=== PATIENT | female | born 1960 | race Caucasian/White ===

== ENCOUNTER 2018-02-10 18:49 | Emergency (ER) | payer SELFPAY ==
[~2018-02-10] VITALS: Ht 165.1 cm; Wt 75.3 kg
[~2018-02-10 18:49] MED LIST: ATEN25 PO; BUPR150T2 PO; DIAZ5 PO; DIVA125EC PO; GABA300 PO; HYDACE5 PO; OXYACE5T PO; ZOLP5 PO
[2018-02-10 19:38] LABS: BASOPHILS ABSOLUTE AUTO 0.02 K/mm3 (0.00-0.23); BASOPHILS PERCENT AUTO 0 % (0-2); EOSINOPHILS ABSOLUTE AUTO 0.04 K/mm3 (0.00-0.68); EOSINOPHILS PERCENT AUTO 0 % (0-6); Hemoglobin 13.4 g/dL (11.5-16.0); IMMATURE GRAN ABSOLUTE AUTO 0.03 K/mm3 (0.00-0.10); IMMATURE GRAN PERCENT AUTO 0 % (0-1); LYMPHOCYTES ABSOLUTE AUTO 1.18 K/mm3 (0.84-5.20); LYMPHOCYTES PERCENT AUTO 13 % (21-46); MONOCYTES ABSOLUTE AUTO 0.52 K/mm3 (0.16-1.47); MONOCYTES PERCENT AUTO 6 % (4-13); Mean Corpuscular HGB Conc 33.5 g/dL (31.5-36.5); Mean Corpuscular Volume 90 fL (80-100); Mean Platelet Volume 10.2 fL (9.1-12.4); NEUTROPHILS ABSOLUTE AUTO 7.29 K/mm3 (1.96-9.15); NEUTROPHILS PERCENT AUTO 80 % (41-73); Platelet Count 172 K/mm3 (150-400); RDW Coefficient Variation 12.9 % (11.7-14.2); RDW Standard Deviation 42.4 fL (35.1-46.3); Red Blood Cell Count 4.47 M/mm3 (3.80-5.20); White Blood Cell Count 9.08 K/mm3 (4.00-11.30)
[2018-02-10] MEDS ORDERED: ALLERGY RELIE15.8 ML (19:38)
[2018-02-10] MEDS ORDERED: L-THEANINE25 GM PO (19:39)
[2018-02-10] MEDS ORDERED: VENL37.5ER PO (19:39)
[2018-02-10] MEDS ORDERED: TRAZ50 PO (19:39)
[2018-02-10] MEDS ORDERED: ESTROGENS CONJUGATED (19:43)
[2018-02-10 19:53] LABS: Alanine Aminotransfer (ALT/SGP 102 U/L (12-78); Albumin, Blood 3.7 g/dL (3.4-5.0); Albumin/Globulin Ratio 1.2 (0.8-1.8); Alk Phos 65 U/L (50-136); Anion Gap 9 mmol/L (6-16); Aspartate Aminotrans (AST/SGOT 157 U/L (12-37); Bilirubin, Total 0.6 mg/dL (0.1-1.0); Blood Urea Nitrogen 15 mg/dL (8-24); Bun/Creatinine Ratio 20.4 (12.0-20.0); CO2, Blood 25 mmol/L (21-32); Calcium, Blood 9.2 mg/dL (8.5-10.1); Chloride, Blood 107 mmol/L (98-108); Creatinine, Blood 0.73 mg/dL (0.40-1.00); Globulin, Blood 3.1 g/dL (2.2-4.0); Glomerular Filtration Rate >60 (60-); Glucose, Blood 78 mg/dL (70-99); Potassium, Blood 3.8 mmol/L (3.5-5.5); Sodium, Blood 141 mmol/L (136-145); Total Protein, Blood 6.8 g/dL (6.4-8.2); Troponin I <0.015 ng/mL (0.000-0.040)
[2018-02-10] MEDS ORDERED: Norco 5-325 Ta1 EACH PO (21:16)
[2018-02-10] MEDS ORDERED: IBUP600 PO (21:16)
== END 2018-02-10 21:30 | disposition home or self-care (01) ==
LOC: ER 18:49
PROVIDERS: Emergency Medicine
DX: R55 Syncope and collapse (principal); S09.90XA Unspecified injury of head, initial encounter; G89.29 Other chronic pain; M54.6 Pain in thoracic spine; R07.81 Pleurodynia; F32.9 Major depressive disorder, single episode, unspecified; F41.9 Anxiety disorder, unspecified; Z79.899 Other long term (current) drug therapy; W22.8XXA Striking against or struck by other objects, initial encounter
CPT/HCPCS: 70450; 71111; 72070; 80053; 84484; 85025; 93005; 93010; 96374; 96375; 99284; J1885; J2060; J3010

== ENCOUNTER 2019-08-31 10:32 | Emergency (ER) | payer OTHER ==
[~2019-08-31] VITALS: Ht 167.6 cm; Wt 90.7 kg
[~2019-08-31 10:32] MED LIST changes: +ALLERGY RELIE15.8 ML; +CEPH500 PO; +ESTROGENS CONJUGATED; +IBUP600 PO; +KETO10 PO; +L-THEANINE25 GM PO; +Norco 5-325 Ta1 EACH PO; +Pyridium100 MG PO; +TRAZ50 PO; +VENL37.5ER PO
[2019-08-31 11:09] LABS: BASOPHILS ABSOLUTE AUTO 0.04 K/mm3 (0.00-0.23); BASOPHILS PERCENT AUTO 1 % (0-2); EOSINOPHILS ABSOLUTE AUTO 0.08 K/mm3 (0.00-0.68); EOSINOPHILS PERCENT AUTO 1 % (0-6); Hematocrit 46.3 % (33.0-51.0); Hemoglobin 15.2 g/dL (11.5-16.0); IMMATURE GRAN ABSOLUTE AUTO 0.02 K/mm3 (0.00-0.10); IMMATURE GRAN PERCENT AUTO 0 % (0-1); LYMPHOCYTES ABSOLUTE AUTO 1.54 K/mm3 (0.84-5.20); LYMPHOCYTES PERCENT AUTO 25 % (21-46); MONOCYTES ABSOLUTE AUTO 0.41 K/mm3 (0.16-1.47); MONOCYTES PERCENT AUTO 7 % (4-13); Mean Corpuscular HGB 30.4 pg (26.0-34.0); Mean Corpuscular HGB Conc 32.8 g/dL (31.5-36.5); Mean Corpuscular Volume 93 fL (80-100); Mean Platelet Volume 9.7 fL (9.1-12.4); NEUTROPHILS PERCENT AUTO 66 % (41-73); Platelet Count 231 K/mm3 (150-400); RDW Coefficient Variation 13.5 % (11.7-14.2); RDW Standard Deviation 46.2 fL (35.1-46.3); White Blood Cell Count 6.09 K/mm3 (4.00-11.30)
[2019-08-31 11:15] LABS: Calcium, Ionized (POC) 0.78 mmol/L (1.10-1.46); Chloride (POC) 119 mmol/L (98-108); Creatinine (POC) 0.2 mg/dL (0.6-1.0); Glucose (ISTAT POC) 62 mg/dL (70-99); Hemoglobin (POC) 9.5 g/dL (12.0-16.0); Potassium (POC) 2.3 mmol/L (3.5-5.5); Sodium (POC) 146 mmol/L (135-148); Total CO2 (POC) 13 mmol/L (21-32)
[2019-08-31] MEDS ORDERED: ATEN25 PO (11:16)
[2019-08-31] MEDS ORDERED: LIDO700A20 TOP (11:16)
[2019-08-31] MEDS ORDERED: VENL37.5ER PO (11:17)
[2019-08-31] MEDS ORDERED: TRAZ50 PO (11:17)
[2019-08-31 11:31] LABS: Alanine Aminotransfer (ALT/SGP 28 U/L (12-78); Albumin, Blood 3.8 g/dL (3.4-5.0); Albumin/Globulin Ratio 1.1 (0.8-1.8); Alk Phos 79 U/L (50-136); Anion Gap 10 mmol/L (6-16); Aspartate Aminotrans (AST/SGOT 35 U/L (12-37); Bilirubin, Total 0.5 mg/dL (0.1-1.0); Blood Urea Nitrogen 15 mg/dL (8-24); Bun/Creatinine Ratio 28.8 (12.0-20.0); CO2, Blood 19 mmol/L (21-32); Calcium, Blood 8.8 mg/dL (8.5-10.1); Chloride, Blood 112 mmol/L (98-108); Creatinine, Blood 0.52 mg/dL (0.40-1.00); Globulin, Blood 3.6 g/dL (2.2-4.0); Glomerular Filtration Rate >60 (60-); Glucose, Blood 90 mg/dL (70-99); Potassium, Blood 3.8 mmol/L (3.5-5.5); Sodium, Blood 141 mmol/L (136-145); Total Protein, Blood 7.4 g/dL (6.4-8.2)
[2019-08-31] MEDS ORDERED: Tenormin25 MG PO (11:52)
== END 2019-08-31 12:15 | disposition home or self-care (01) ==
LOC: ER 10:32
PROVIDERS: Emergency Medicine
DX: I48.0 Paroxysmal atrial fibrillation (principal); F32.9 Major depressive disorder, single episode, unspecified; F41.9 Anxiety disorder, unspecified; Z88.2 Allergy status to sulfonamides; Z88.5 Allergy status to narcotic agent; Z87.891 Personal history of nicotine dependence; Z79.899 Other long term (current) drug therapy; Z91.14 Patient's other noncompliance with medication regimen
CPT/HCPCS: 36415; 71045; 80047; 80053; 85014; 85025; 93005; 93010; 96360; 99284-25; J7030

== ENCOUNTER 2019-12-25 10:17 | Emergency (ER) | payer OTHER ==
[~2019-12-25] VITALS: Ht 167.6 cm; Wt 91.2 kg
[~2019-12-25 10:17] MED LIST changes: +LIDO700A20 TOP; +Tenormin25 MG PO
[2019-12-25 11:02] LABS: BASOPHILS ABSOLUTE AUTO 0.03 K/mm3 (0.00-0.23); BASOPHILS PERCENT AUTO 1 % (0-2); EOSINOPHILS ABSOLUTE AUTO 0.17 K/mm3 (0.00-0.68); EOSINOPHILS PERCENT AUTO 3 % (0-6); Hematocrit 41.5 % (33.0-51.0); Hemoglobin 13.7 g/dL (11.5-16.0); IMMATURE GRAN ABSOLUTE AUTO 0.01 K/mm3 (0.00-0.10); IMMATURE GRAN PERCENT AUTO 0 % (0-1); LYMPHOCYTES ABSOLUTE AUTO 1.55 K/mm3 (0.84-5.20); LYMPHOCYTES PERCENT AUTO 29 % (21-46); MONOCYTES PERCENT AUTO 8 % (4-13); Mean Corpuscular HGB 31.4 pg (26.0-34.0); Mean Corpuscular Volume 95 fL (80-100); Mean Platelet Volume 9.5 fL (9.1-12.4); NEUTROPHILS ABSOLUTE AUTO 3.15 K/mm3 (1.96-9.15); NEUTROPHILS PERCENT AUTO 59 % (41-73); Platelet Count 197 K/mm3 (150-400); RDW Coefficient Variation 13.5 % (11.7-14.2); Red Blood Cell Count 4.36 M/mm3 (3.80-5.20); White Blood Cell Count 5.31 K/mm3 (4.00-11.30)
[2019-12-25 11:38] LABS: Alanine Aminotransfer (ALT/SGP 21 U/L (12-78); Albumin, Blood 3.3 g/dL (3.4-5.0); Albumin/Globulin Ratio 1.1 (0.8-1.8); Alk Phos 68 U/L (50-136); Anion Gap 6 mmol/L (6-16); Aspartate Aminotrans (AST/SGOT 25 U/L (12-37); Bilirubin, Total 0.2 mg/dL (0.1-1.0); Blood Urea Nitrogen 9 mg/dL (8-24); Bun/Creatinine Ratio 15.1 (12.0-20.0); CO2, Blood 24 mmol/L (21-32); Calcium, Blood 7.7 mg/dL (8.5-10.1); Chloride, Blood 113 mmol/L (98-108); Globulin, Blood 3.1 g/dL (2.2-4.0); Glomerular Filtration Rate >60 (60-); Glucose, Blood 82 mg/dL (70-99); Potassium, Blood 3.5 mmol/L (3.5-5.5); Sodium, Blood 143 mmol/L (136-145); Total Protein, Blood 6.4 g/dL (6.4-8.2); Troponin I <0.015 ng/mL (0.000-0.040)
== END 2019-12-25 12:16 | disposition home or self-care (01) ==
LOC: ER 10:17
PROVIDERS: Physician Assistant
DX: I48.91 Unspecified atrial fibrillation (principal); F41.9 Anxiety disorder, unspecified; F32.9 Major depressive disorder, single episode, unspecified; M54.9 Dorsalgia, unspecified; G89.29 Other chronic pain; M79.7 Fibromyalgia; Z88.2 Allergy status to sulfonamides; Z88.5 Allergy status to narcotic agent; Z79.899 Other long term (current) drug therapy
CPT/HCPCS: 36415; 71046; 80053; 84484; 85025; 93005; 93010; 99285-25

== ENCOUNTER 2020-03-30 10:05 | Emergency (ER) | payer OTHER ==
[~2020-03-30] VITALS: Ht 165.1 cm; Wt 86.2 kg
[2020-03-30] MEDS ORDERED: AMOCLA875 PO (11:03)
[2020-03-30] MEDS ORDERED: Norco 5-325 Ta1 EACH PO (11:03)
== END 2020-03-30 12:16 | disposition home or self-care (01) ==
LOC: ER 10:05
DX: S91.352A Open bite, left foot, initial encounter (principal); S51.852A Open bite of left forearm, initial encounter; Z88.2 Allergy status to sulfonamides; Z88.5 Allergy status to narcotic agent; Z79.899 Other long term (current) drug therapy; I48.91 Unspecified atrial fibrillation; F41.9 Anxiety disorder, unspecified; F32.9 Major depressive disorder, single episode, unspecified; Z87.891 Personal history of nicotine dependence; W54.0XXA Bitten by dog, initial encounter
CPT/HCPCS: 99283; A9270-GY

== ENCOUNTER 2020-09-22 10:29 | Emergency (ER) | payer OTHER ==
[~2020-09-22] VITALS: Ht 167.6 cm; Wt 104.3 kg
[~2020-09-22 10:29] MED LIST changes: +AMOCLA875 PO
[2020-09-22 11:00] LABS: BASOPHILS ABSOLUTE AUTO 0.02 K/mm3 (0.00-0.23); BASOPHILS PERCENT AUTO 0 % (0-2); EOSINOPHILS PERCENT AUTO 4 % (0-6); Hematocrit 45.8 % (33.0-51.0); IMMATURE GRAN ABSOLUTE AUTO 0.02 K/mm3 (0.00-0.10); IMMATURE GRAN PERCENT AUTO 0 % (0-1); LYMPHOCYTES ABSOLUTE AUTO 1.12 K/mm3 (0.84-5.20); LYMPHOCYTES PERCENT AUTO 22 % (21-46); MONOCYTES ABSOLUTE AUTO 0.53 K/mm3 (0.16-1.47); MONOCYTES PERCENT AUTO 10 % (4-13); Mean Corpuscular HGB 30.8 pg (26.0-34.0); Mean Corpuscular HGB Conc 32.8 g/dL (31.5-36.5); Mean Corpuscular Volume 94 fL (80-100); Mean Platelet Volume 9.8 fL (9.1-12.4); NEUTROPHILS PERCENT AUTO 63 % (41-73); Platelet Count 208 K/mm3 (150-400); RDW Standard Deviation 45.1 fL (35.1-46.3); Red Blood Cell Count 4.87 M/mm3 (3.80-5.20); White Blood Cell Count 5.09 K/mm3 (4.00-11.30)
[2020-09-22 11:19] LABS: International Normalized Ratio 0.96; Prothrombin Time Results 10.3 Sec (9.7-11.5)
[2020-09-22 11:26] LABS: Alanine Aminotransfer (ALT/SGP 47 U/L (12-78); Albumin, Blood 3.7 g/dL (3.4-5.0); Albumin/Globulin Ratio 0.9 (0.8-1.8); Alk Phos 103 U/L (50-136); Anion Gap 8 mmol/L (6-16); Aspartate Aminotrans (AST/SGOT 50 U/L (12-37); Bilirubin, Total 0.3 mg/dL (0.1-1.0); Blood Urea Nitrogen 15 mg/dL (8-24); Bun/Creatinine Ratio 20.5 (12.0-20.0); CO2, Blood 26 mmol/L (21-32); Chloride, Blood 105 mmol/L (98-108); Creatinine, Blood 0.73 mg/dL (0.40-1.00); Globulin, Blood 4.1 g/dL (2.2-4.0); Glomerular Filtration Rate >60 (60-); Glucose, Blood 102 mg/dL (70-99); Sodium, Blood 139 mmol/L (136-145); Total Protein, Blood 7.8 g/dL (6.4-8.2)
[2020-09-22] MEDS ORDERED: ZEBUTAL 50-3251 EAC1 PO (12:02)
== END 2020-09-22 12:55 | disposition home or self-care (01) ==
LOC: ER 10:29
PROVIDERS: Emergency Medicine
DX: G43.909 Migraine, unspecified, not intractable, without status migrainosus (principal); I48.91 Unspecified atrial fibrillation; Z87.442 Personal history of urinary calculi; Z87.891 Personal history of nicotine dependence; Z79.899 Other long term (current) drug therapy
CPT/HCPCS: 36415; 70450; 80053; 84484; 85025; 85610; 85730; 93005; 93010; 96374; 99285-25; A9270; J2405

== ENCOUNTER 2020-10-01 17:24 | Inpatient (IN) | payer OTHER ==
[~2020-10-01] VITALS: Ht 165.1 cm; Wt 102.7 kg
[~2020-10-01 17:24] MED LIST changes: +ZEBUTAL 50-3251 EAC1 PO
[2020-10-01 19:13] LABS: BASOPHILS ABSOLUTE AUTO 0.04 K/mm3 (0.00-0.23); BASOPHILS PERCENT AUTO 1 % (0-2); EOSINOPHILS ABSOLUTE AUTO 0.12 K/mm3 (0.00-0.68); EOSINOPHILS PERCENT AUTO 2 % (0-6); Hematocrit 44.1 % (33.0-51.0); Hemoglobin 14.3 g/dL (11.5-16.0); IMMATURE GRAN ABSOLUTE AUTO 0.01 K/mm3 (0.00-0.10); IMMATURE GRAN PERCENT AUTO 0 % (0-1); LYMPHOCYTES ABSOLUTE AUTO 1.75 K/mm3 (0.84-5.20); LYMPHOCYTES PERCENT AUTO 28 % (21-46); MONOCYTES ABSOLUTE AUTO 0.58 K/mm3 (0.16-1.47); MONOCYTES PERCENT AUTO 9 % (4-13); Mean Corpuscular HGB Conc 32.4 g/dL (31.5-36.5); Mean Corpuscular Volume 96 fL (80-100); Mean Platelet Volume 9.6 fL (9.1-12.4); NEUTROPHILS PERCENT AUTO 60 % (41-73); Platelet Count 270 K/mm3 (150-400); RDW Coefficient Variation 12.7 % (11.7-14.2); RDW Standard Deviation 45.3 fL (35.1-46.3); Red Blood Cell Count 4.62 M/mm3 (3.80-5.20)
[2020-10-01 19:27] LABS: Alanine Aminotransfer (ALT/SGP 35 U/L (12-78); Albumin, Blood 3.4 g/dL (3.4-5.0); Albumin/Globulin Ratio 0.8 (0.8-1.8); Alk Phos 89 U/L (50-136); Anion Gap 4 mmol/L (6-16); Aspartate Aminotrans (AST/SGOT 33 U/L (12-37); Bilirubin, Total 0.2 mg/dL (0.1-1.0); Blood Urea Nitrogen 14 mg/dL (8-24); Bun/Creatinine Ratio 21.1 (12.0-20.0); CO2, Blood 27 mmol/L (21-32); Calcium, Blood 9.2 mg/dL (8.5-10.1); Chloride, Blood 107 mmol/L (98-108); Creatinine, Blood 0.66 mg/dL (0.40-1.00); Globulin, Blood 4.1 g/dL (2.2-4.0); Glomerular Filtration Rate >60 (60-); Glucose, Blood 87 mg/dL (70-99); Potassium, Blood 3.9 mmol/L (3.5-5.5); Sodium, Blood 138 mmol/L (136-145); Total Protein, Blood 7.5 g/dL (6.4-8.2)
[2020-10-01 21:48] LABS: CHOL/HDL RATIO 3.6; Cholesterol 221 mg/dL (50-200); HDL Cholesterol 61 mg/dL (>39); LDL/HDL RATIO 2.1; Low Density Lipoprotein Chol 126 mg/dL (0-110); Triglycerides 170 mg/dL (30-160); Very Low Density Lipoprot Chol 34 mg/dL (6-32)
[2020-10-01 22:29] LABS: Influenza A, PCR Negative (NEGATIVE); Influenza B, PCR Negative (NEGATIVE); Resp Syncytial Virus, PCR Negative (NEGATIVE); SARS-Cov-2 (COVID-19) PCR, MMC Negative (NEGATIVE)
[2020-10-01] MEDS ORDERED: ATEN25 PO (23:01)
[2020-10-01] MEDS ORDERED: VENL37.5ER PO (23:02)
--- NOTE | 2020-10-02 00:52 | NUR ---
PT REPORTED THAT SHE WAS ALMOST ASLEEP AND THEN SHE BEGAN HAVING A "SPLITTING" HEADACHE. MEDICATED W/ 650 MG TYLENOL AND PROVIDED COOL WASHCLOTH FOR HEAD.
--- NOTE | 2020-10-02 05:25 | NUR ---
SHIFT SUMMARY PT HAS HAD A DIFFICULT NIGHT. PT HAS AN UNSTEADY GAIT, REPORTS THAT SHE FEELS "UNBALANCED", VISUAL DISTURBANCES. IT APPLICATIONS ANALYST EQUAL AND STRONG, PUPILS EQUAL AND REACTIVE TO LIGHT. NO FACIAL DROOP. SOME DIFFICULTIES FINDING HER WORDS. PT DEVELOPED SEVERE HEADACHE THAT HAS NOT BEEN RESOLVED WITH MEDICATIONS SO FAR. TYLENOL 650 MG GIVEN, TORADOL 15 MG GIVEN, 25 MCG IV FENTANYL GIVEN, AND FINALLY FIORICET 1 TAB GIVEN. ZOFRAN GIVEN WITH FIORICET DUE TO PT REPORTING NAUSEA CAUSED BY HEADACHE. DR. BASS NOTIFIED W/ NEW ORDERS X 3. COOL WASHCLOTH APPLIED TO HEAD. PT RESTING IN BED AT THIS TIME WITH COOL WASHCLOTH ON HEAD. WAITING TO SEE EFFECTIVENESS OF FIORICET/ZOFRAN. WILL CONTINUE TO MONITOR FOR IMPROVEMENT. PT HAS BEEN HYPERTENSIVE WELL THIS EVENING WITH IMPROVEMENT AFTER PO APRESOLINE. LAST BP 153/79, IMPROVED FROM 189/115. OTHERWISE VSS. TELEMETRY REPORTING SR IN THE 70'S. WILL CONTINUE TO MONITOR AND REPORT TO DAY RN.
--- NOTE | 2020-10-02 06:03 | NUR ---
PT APPEARS TO BE SLEEPING AFTER FIORICET 1 TAB AND ZOFRAN 4 MG.
--- NOTE | 2020-10-02 06:40 | NUR ---
PT SITTING UP AT SIDE OF BED AGAIN. CONTINUES TO REPORT 8/[address] BASS[address] NO RESULTS FOR HEAD AND NECK CTA DONE LAST NIGHT. SPOKE WITH IMAGING WHO STATED THAT THE MD HAD ACCESS TO RESULTS. NOTIFIED DR. BASS. BLOOD PRESSURE ELEVATED AT 199/117. DR. BASS AWARE AND PUTTING IN ORDERS.
--- NOTE | 2020-10-02 08:10 | NUR ---
PT TO HEAD CT THIS AM DURING SHIFT CHANGE REPORT, COLOR MAKING SUPERVISOR CALLED BACK AND REPORTED PT STARTED VOMITTING IN IMAGING AND WOULD BE BRINGING PT BACK TO ROOM. NIGHT RN HAD ALREADY PREVIOUSLY GIVEN IV ZOFRAN. PT NOTED TO BE VERY ANXIOUS CRYING OUT AND STATING "HELP ME" "IM SCARED" CALLED AND SPOKE WITH DAY HOSPITALIST DR HERNANDES AND ORDERS RECEIVED FOR REGLAN X1 AND PRN IV ATIVAN, REGLAN GIVEN WELL ATIVAN. PT WAS ABLE TO GO BACK TO IMAGING AND COMPLETE THE CT. PT REMAINS VERY NAUSEATED AND 10/10 HEADACHE.
--- NOTE | 2020-10-02 17:05 | NUR ---
SHIFT SUMMARY- PT A/OX3, SLOW TO RESPOND AT TIMES. FLAT AFFECT. PT WITH FRONTAL HEADACHE T/O THE DAY. PRN DILAUDID GIVEN THIS AM AND CHANGED TO FENTANYL, PT CONT TO REPORT HEADAHCE WITH NAUSEA AND VOMITTING. VOMITTING THIS AM AND DRY HEAVING OFF AND ON T/O THE DAY. PT NOT BEEN ABLE TO TAKE ANYTHING ORALLY BUT SIPS. LR AT 125ML/HR STARTED. PT VERY ANXIOUS THIS AM, PRN ATIVAN GIVEN. PT APPEARS MUCH MORE CALM THIS AFTERNOON BUT SOON YOU ARE IN THE ROOM PT STATES DRY HEAVING AND ROCKING IN CHAIR. PT UP WITH 1 ASSIST, UNSTEADY GAIT. STEEL GRINDER EQUAL. PT DID REPORT SOME VERTIGO THIS AM BUT DENIES ANY THIS AFTERNOON. LS CLEAR, ON RA. TELE SR IN THE 70'S. PT HYPERTENSIVE TODAY, PRN HYDRALAZINE GIVEN. SPOUSE IN THIS EVENING AND UPDATED. SPOKE WITH DR HERNANDES THIS EVENING REGARDING CONTINUED NAUSEA, PRN COMPAZINE ORDERED. NO OTHER ACUTE CHANGES THIS SHIFT.
--- NOTE | 2020-10-02 18:01 | NUR ---
ECHO IN PROGRESS. ISTRATE IN TO UPDATE SPOUSE PER HIS REQUEST.
--- NOTE | 2020-10-02 22:59 | NUR ---
Assisted pt to BR. Pt has lt side neglect and is forgetful. Upset and teary, stating neck and back discomfort. "i can't take it anymore, i just want to sleep" Given ativan 1mg, pt assisted back to bed wiht bed alarm on and call light in reach.
--- NOTE | 2020-10-03 04:14 | NUR ---
SHIFT SUMMARY PT HAS RESTED OFF AND ON T/O THE NIGHT. PT CONTINUES TO HAVE ISSUES WITH HER VISION RELATED TO THE STROKE. PT ALSO IS VERY ANXIOUS AND IMPULSIVE. SHE PULLED HER TELE AND PULLED OUT HER IV THIS SHIFT. NEW POWERGLIDE WAS ESTABLISHED A RESULT. SHE IS A/O TO SELF, AND IS AWARE THAT WE HAVE A NEW PRESIDENT, BUT UNABLE TO TELL ME THE YEAR STATING THAT IT WAS 2009. SHE FOLLOWS COMMANDS BUT IS VERY SLOW TO REPSOND. PT CONTINUES TO HAVE OFF AND ON NAUSEA WITH DRY HEAVES AND SMALL AMOUNTS OF EMESIS. MEDICATED FOR NAUSEA PER ORDERS WITH EFFECT. PT HAS BEEN HYPERTENSIVE THIS SHIFT, BUT BLOOD PRESSURE IMPROVED WITH PRN HYDRALYZINE. PT HAS BEEN AMBULATING WELL WITH 1 PA. NO ACUTE CHANGES IN ASSESSMENT. IVF INFUSING ORDERED. BED IN LOWEST POSITION, CALL LIGHT WITHIN REACH.
[2020-10-03 05:19] LABS: BASOPHILS ABSOLUTE AUTO 0.03 K/mm3 (0.00-0.23); BASOPHILS PERCENT AUTO 0 % (0-2); EOSINOPHILS ABSOLUTE AUTO 0.02 K/mm3 (0.00-0.68); EOSINOPHILS PERCENT AUTO 0 % (0-6); Hematocrit 42.9 % (33.0-51.0); Hemoglobin 13.9 g/dL (11.5-16.0); IMMATURE GRAN ABSOLUTE AUTO 0.02 K/mm3 (0.00-0.10); IMMATURE GRAN PERCENT AUTO 0 % (0-1); LYMPHOCYTES ABSOLUTE AUTO 1.39 K/mm3 (0.84-5.20); LYMPHOCYTES PERCENT AUTO 14 % (21-46); MONOCYTES ABSOLUTE AUTO 0.74 K/mm3 (0.16-1.47); MONOCYTES PERCENT AUTO 8 % (4-13); Mean Corpuscular HGB 30.5 pg (26.0-34.0); Mean Corpuscular HGB Conc 32.4 g/dL (31.5-36.5); Mean Corpuscular Volume 94 fL (80-100); Mean Platelet Volume 9.6 fL (9.1-12.4); NEUTROPHILS ABSOLUTE AUTO 7.55 K/mm3 (1.96-9.15); NEUTROPHILS PERCENT AUTO 77 % (41-73); Platelet Count 269 K/mm3 (150-400); RDW Coefficient Variation 12.8 % (11.7-14.2); RDW Standard Deviation 44.2 fL (35.1-46.3); Red Blood Cell Count 4.56 M/mm3 (3.80-5.20); White Blood Cell Count 9.75 K/mm3 (4.00-11.30)
[2020-10-03 05:42] LABS: Anion Gap 8 mmol/L (6-16); Blood Urea Nitrogen 5 mg/dL (8-24); CO2, Blood 24 mmol/L (21-32); Calcium, Blood 9.1 mg/dL (8.5-10.1); Chloride, Blood 108 mmol/L (98-108); Creatinine, Blood 0.63 mg/dL (0.40-1.00); Glomerular Filtration Rate >60 (60-); Glucose, Blood 88 mg/dL (70-99); Potassium, Blood 3.7 mmol/L (3.5-5.5); Sodium, Blood 140 mmol/L (136-145)
--- NOTE | 2020-10-03 15:54 | NUR ---
TRANSFER NOTE PATIENT ALERT, ORIENTED TO SELF, THIS SHIFT. PATIENT FORGETFUL AND IMPULSIVE THROUGHOUT THIS SHIFT. PATIENT MEDICATED FOR PAIN, ANXIETY, AND NAUSEA THROUGHOUT THIS SHIFT. PATIENT WORKED WITH PT/OT THIS SHIFT. PUBLICITY WRITER TECH CALLED AT AT APPROXIMATELY 1500 STATING THAT THE PATIENT'S HR WAS IN THE 130-140 RANGE. PATIENT HISTORY OF AFIB IDENTIFIED. HR MISBAH TO 170S, AFIB. PATIENT ASYMPTOMATIC. DR HERNANDES NOTIFIED. DR HERNANDES TO THE ROOM TO ASSESS PATIENT. PLANS MADE FOR PATIENT TO TRANSFER TO PCU 8. PATIENT BELONGINGS WITH PATIENT UPON TRANSFER. REPORT GIVEN TO PCU 8 NURSE UPON ARRIVAL.
--- NOTE | 2020-10-03 16:22 | NUR ---
PT ARRIVED FROM MEDICAL FLOOR WITH AFIB RVR. CARDIZEM STARTED AT 15ML/HR PER KAMAR RN, PT ALSO RECIEVED CARDIZEM BOLUS. PT UNABLE TO VOID, BLADDER SCAN PERFORMED THERE IS GREATER JALEEL 999 ML OF URINE IN BLADDER PER BLADDER SCAN. PT ALERTED AND ATTEMPTING TO EXIT THE BED CONSTANTLY UPON ARRIVAL SHE DOES CALM SLIGHTLY WITH HARRIS CATH PLACEMENT, HARRIS IS DRAINING WELL TO GRAVITY. PT'S RHYTHM NOTED TO BE AFIB AT 130 AT THE TIME OF THIS NOTE. PT WITH WEAKNESS NOTED TO LT ARM AND LEG, FULL ROM OF RT ARM AND LEG, PERRL, EQUAL SMILE.
--- NOTE | 2020-10-03 18:01 | NUR ---
METOPOROL ADMINISTERED FOR HR, BP REMAINS STABLE. PT BECOMES VERY ANGRY WHILE ASSESSING CIWA, SHE IS ANGRY TO LEARN THAT NOTIFIED STAFF OF HER DAILY DRINKING AND SHE BECAME GOOD ANGRY IS CURING ABOUT SPOUSE AND PROJECTING BLAME ON SPOUSE FOR HER DRINKING, PT IS REASSURED THAT SPOUSE WAS ONLY TRYING TO HELP HER AND THAT STAFF IS TRYING TO ASSESS TO SEE WHAT MEDCIATIONS SHE MAY NEED. SHE RAMINS ANGRY. CIWA 15, PT MEDCIATED WITH 2MG ATIVAN IVP, TERMOR HAS NOW CEASED
--- NOTE | 2020-10-03 18:07 | NUR ---
PT CONVERTED TO NORMAL SINUS RHYTHM
--- NOTE | 2020-10-03 18:49 | NUR ---
PT CONVERTED INTO SINUS RHYTHM OF 69 AT 1806, CARDIZEM DRIP WAS IMMEDIATELY STOPPED AT 1806. PT IS RESTING WELL, TREMOR AND NAUSEA HAVE NOW RESOLVED, PT SLEEPING, AWAKENS TO VERBAL STIMULI
[2020-10-04 04:36] LABS: Magnesium, Blood 1.9 mg/dL (1.6-2.4); Phosphorus, Blood 2.9 mg/dL (2.5-4.9)
--- NOTE | 2020-10-04 04:47 | NUR ---
SHIFT SUMMARY PT LETHARGIC MUCH OF SHIFT, HOWEVER IMPULSIVE AT TIMES; CIWA 9-16; NOTABLE WHEN ATIVAN AND LIBRIUM SUBSIDED; AT TIMES, DISROBED AND REMOVED TELE AND OUT OF BED; DOES NOT ANSWER ORIENTING QUESTION OR FOLLOW DIRECTIONS; VSS STABLE, BUT VARIABLE; O2 SATS >93 ON RA; KIMBERLY PATENT & DRAINING YELLOW; CALL LIGHT IN REACH; BED ALARM ON; WILL CONTINUE TO MONITOR CLOSELY UNTIL HAND OFF TO DAY SHIFT RN.
--- NOTE | 2020-10-04 09:01 | NUR ---
PT AWAKE AGIATATED AT THE END OF BED TRYING TO EXIT THE GURNEY, TANGLED IN IV TUBING. PT BEGINS TO THREATEN STAFF THAT WHEN SHE FEELS BETTER SHE HAS PLANS TO HARM STAFF MEMBERS. PT TALKING ABOUT "BOYFRIEND" AND "" BUT STS THEY ARE THE SAME PERSON. PT STS THAT SHE IS GOING TO HAVE S/O "BRING A LITTLE SURPRISE FOR YOU, IT'S SUBJECTIVE IF YOU'RE GONNA LIKE IT" PT IS REDIRECTED TO SUPINE STS THAT SHE WISHES TO EAT BREAKFAST. PT IS MEDCIATED FOR CIWA OF 15, WILL CONTINUE TO MONITOR
--- NOTE | 2020-10-04 10:57 | NUR ---
PT AWAKE ATTEMPTING TO EXIT GURNEY. PT TANGLED IN IV LINES. PT WAS PREVIOUSLY TREATED WITH ATIVAN AND LIBRIUM FOR CIWA OF 15, CIWA OF 16 NOW DECISION WAS MADE TO INCREASE THE ATIVAN TO CIWA THAT IS INCREASING. VSS POST MEDICATION ADMINISTRATION. PT ONLY ORIENTED TO SELF, AGITATED, HALLUCINATING AND SINGING TO SELF.
--- NOTE | 2020-10-04 13:15 | NUR ---
Pt is sitting up in bed, eating lunch. Talking on the phone to her . She states that her back and her neck are hurting, tells that "I can't believe the things that you told these people". States she just wants to go home and go to bed. Heart rhythm is atrial fibrillation, rate 110-130, on cardizem gtt at 10 cc/hour at this time.
--- NOTE | 2020-10-04 13:42 | NUR ---
CIWA 10 at this time. Librium given 25 mg at this time.
--- NOTE | 2020-10-04 14:14 | NUR ---
SPOUSE ARRIVES PT BECOMES ANGRY THREATENING STAFF. PT WITH VERY PRONOUNCED TREMOR, C/O HEADACHE AND "BAD" NAUSEA. PT THEN BEGINS ATTEMPTING TO EXIT BED AND PULLING AT CATHETER. PT EXPRESSED ANGER THAT SHE IS "HERE WITH THIS SONG AND DANCE" CONTINUES TRYING TO EXIT THE BED. SPOUSE LEAVES THEN PT STS "MY TIMA HEAD NEEDS TO LEAVE" PT REMINDED THAT IS NOT IN THE ROOM, PT LOOKS AROUND THE ROOM STS "YOUR FULL OF SHIT HE'S THERE" PT NOW WITH VISUAL HALLUCINATIONS SEEING PEOPLE THAT ARE NOT IN THE ROOM. PT WAS MEDCIATED WITH 4MG ATIVAN FOR CIWA OF 17. PT REMAINS ON CAMERA SUPERVISION SHE IS CONFUSED AND IMPULSIVE
--- NOTE | 2020-10-04 15:16 | NUR ---
PT HAS CONVERTED FROM AFIB TO SINUS LAXMI AT 54, CARDIZEM IS STOPPED AT 1506 WHEN PT SUDDENLY CONVERTED. STRIP PLACED IN CHART OF PT RHYTHM CHANGE. PT SLEEPING, AWAKENS EASILY TO VERBAL STIMULI.
--- NOTE | 2020-10-04 16:28 | NUR ---
PT WOKE UP AND PULLED A PART TELEMETRY SET UP, TELEMETRY REPLACED. PT TALKING TO AND ANSWERING SELF. NO TREMOR NOTED, DENIES NAUSEA OR JONES
--- NOTE | 2020-10-04 16:46 | NUR ---
PT NOW ATTEMPTING TO EXIT BED, PT SHOUTING THAT LEFT AND DID NOT RETURN, PT REMINDED THAT DID RETURN TO SEE HER. IT SHOULD BE NOTED THAT WHEN SPOUSE RETURNED PT STATED TO HIM THAT "REVENGE IS A BITCH AND YOU'LL GET WHAT IS COMING TO YOU" AND WAS SO VERBALLY AGGRESIVE WITH SPOUSE THAT HE LEFT CRYING. PER S/O THIS IS NOT THE PT'S NORMAL MENTATION AT HOME. AT THIS TIME PT REPORTS JONES HAS RETURNED, FINE TREMOR NOTED TO RT HAND AND HEAD PT TURNS HEAD. PT REPORTS NECK PAIN BUT WHEN STAFF OFFERED HER A NECK PILLOW FOR HER NECK SHE REFUSED TO SPEAK TO STAFF OR LIFT HEAD THEN STS "NO" PT WAS MEDICATED WITH 2MG ATIVAN AND 50MG LIBRIUM PER CIWA ORDERS
--- NOTE | 2020-10-04 16:57 | NUR ---
PT STS THAT THE YEAR IS "[birth year]", STS THAT SHE IS AT HOME IN [place], SHE IS AWARE THAT RYDER IS OUR PRESIDENT, AND SHE IS AWARE THAT IT IS TUESDAY. PT IS NOT EASILY REDIRECTED STS " SOON I CAN I AM GETTING OUT OF HERE" REMAINS ANGRY AT HER SPOUSE FOR TELLING STAFF ABOUT HER DAILY ETOH CONSUMPTION. PT HAS WAVES OF AGITATION AND MAKING THREATS TO STAFF THEN QUICKLY BECOMES PLEASANT AND COOPEARTIVE. PT DID NOT HAVE SIMILAR FLUCTUATIONS WITH SPOUSE, SHE WAS CONSISTANTLY AGGRESIVE AND HOSTILE WITH SPOUSE
--- NOTE | 2020-10-04 18:15 | NUR ---
SEE PREVIOUS NOTES T/O THE DAY. PT WITH CIWAs THAT HAVE RANGED FROM 15-17 T/O THE DAY. PT CONFUSED AND AGITATED, CAMERA WAS TURNED ON SHE WAS ATTEMPTING TO EXIT THE BED, VERY IMPULSIVE, AND IS EASILY AGITATED. PT WAS NOTED TO BE HITTING HERSELF IN THE LEG THIS AFTERNOON, WHEN PT ASKED WHY SHE IS STRICKING HERSELF STS "MY DID IT", WAS NOT IN THE ROOM, ONLY THIS RN AND PT IN THE ROOM AND IT WAS WITNESSED PT REPEATEDLY HITTING HERSELF IN THE LEG. THEN PT STS "GET MY OUT OF HERE"
--- NOTE | 2020-10-04 20:30 | NUR ---
ASSUMED CARE RECEIVED BEDSIDE REPORT FROM MARY KAY MERCEDES; PT ALERT AND WATCHING TV; VSS; TREMORS NOTED; O2 SATS >93 ON RA; PT APPEARS FLUSHED; DOES NOT RESPOND TO ORIENTING QUESTIONS; TAKES PO MEDS W/ NO DIFFICULTY; ATIVAN AND LIBRIUM ADMINISTERED; SPOUSE CALLED AND UPDATE GIVEN; SPOUSE STATES PT WANTS TO WITHDRAW FROM ALCOHOL AND HAD TRIED TO STOP DRINKING SUDDENLY; HE EXPRESSED MUCH CONCERN FOR PT AND WANTS ANY MEASURES TO HELP HER; CALL LIGHT IN REACH; BED IN LOWEST POSITION; BED ALARM AND CAMERA ON.
--- NOTE | 2020-10-05 01:52 | NUR ---
UPDATE PT IN AFIB RVR FOR APPROXIMATELY 1 HOUR; HR 118-135; CONVERTED TO NSR @ 0150 W/ HR 60
[2020-10-05 04:12] LABS: BASOPHILS ABSOLUTE AUTO 0.06 K/mm3 (0.00-0.23); BASOPHILS PERCENT AUTO 1 % (0-2); EOSINOPHILS ABSOLUTE AUTO 0.18 K/mm3 (0.00-0.68); EOSINOPHILS PERCENT AUTO 3 % (0-6); Hematocrit 38.5 % (33.0-51.0); Hemoglobin 12.6 g/dL (11.5-16.0); IMMATURE GRAN ABSOLUTE AUTO 0.02 K/mm3 (0.00-0.10); IMMATURE GRAN PERCENT AUTO 0 % (0-1); LYMPHOCYTES ABSOLUTE AUTO 1.73 K/mm3 (0.84-5.20); LYMPHOCYTES PERCENT AUTO 24 % (21-46); MONOCYTES ABSOLUTE AUTO 0.56 K/mm3 (0.16-1.47); MONOCYTES PERCENT AUTO 8 % (4-13); Mean Corpuscular HGB 31.3 pg (26.0-34.0); Mean Corpuscular HGB Conc 32.7 g/dL (31.5-36.5); Mean Corpuscular Volume 96 fL (80-100); Mean Platelet Volume 9.8 fL (9.1-12.4); NEUTROPHILS ABSOLUTE AUTO 4.76 K/mm3 (1.96-9.15); NEUTROPHILS PERCENT AUTO 65 % (41-73); Platelet Count 193 K/mm3 (150-400); RDW Coefficient Variation 12.4 % (11.7-14.2); RDW Standard Deviation 43.6 fL (35.1-46.3); Red Blood Cell Count 4.03 M/mm3 (3.80-5.20); White Blood Cell Count 7.31 K/mm3 (4.00-11.30)
[2020-10-05 04:31] LABS: Anion Gap 6 mmol/L (6-16); Blood Urea Nitrogen 10 mg/dL (8-24); Bun/Creatinine Ratio 15.4 (12.0-20.0); CO2, Blood 26 mmol/L (21-32); Calcium, Blood 8.3 mg/dL (8.5-10.1); Chloride, Blood 109 mmol/L (98-108); Creatinine, Blood 0.65 mg/dL (0.40-1.00); Glomerular Filtration Rate >60 (60-); Glucose, Blood 100 mg/dL (70-99); Magnesium, Blood 1.8 mg/dL (1.6-2.4); Phosphorus, Blood 3.1 mg/dL (2.5-4.9); Potassium, Blood 3.7 mmol/L (3.5-5.5); Sodium, Blood 141 mmol/L (136-145)
--- NOTE | 2020-10-05 06:25 | NUR ---
SHIFT SUMMARY PT MORE ALERT THIS SHIFT; VSS; CONVERTED TO AFIB TO SINUS LAXMI X 2 THIS SHIFT; O2 SATS >93 ON RA; LR GTT @ 50; HARRIS PATENT & DRAINING W/ DK KIAN URINE; ATIVAN & LIBRIUM GIVEN CONSISTENTLY; EARLY AM PT WAS ABLE TO HAVE SMALL CONVERSATION ABOUT HOME LIFE, STILL DOES NOT ANSWER SPECIFIC ORIENTING QUESTIONS; CAMERA ON FOR SAFETY MEASURES; CALL LIGHT IN REACH; BED IN LOWEST POSITION; WILL CONTINUE TO MONITOR CLOSELY UNTIL HAND OFF TO DAY SHIFT RN.
--- NOTE | 2020-10-05 10:10 | NUR ---
UPDATE: PT TELE SHOWING AFIB AT 0845. PT DENIES CHEST PAIN/PRESSURE. ISTRATE NOTIFIED AND TO ROOM. PT STARTED ON PO CARDIZEM. CONVERTED BACK TO SINUS RHYTHM AROUND 1000. WILL CONTINUE TO MONITOR.
--- NOTE | 2020-10-05 19:20 | NUR ---
SHIFT SUMMARY PT IS ALERT AND ORIENTED TO PLACE, EVENT AND BIRTHDATE. UNABLE TO STATE DATE. SLOW TO RESPOND AND AT TIMES SLURRED. VITAL SIGNS STABLE WITH SLIGHTLY ELEVATED BP. ON ROOM AIR SATING ABOVE 92%. DENIES CHEST PAIN. TELE SHOWING NORMAL SINUS RHYTHM WITH HR 60-70'S. L UPPER ARM IV INFUSING LR AT 50MLS/HR. UP TO BEDSIDE COMMODE. CIWA SCORING FLUCUATED FROM 6-10, MEDICATED WITH LIBRIUM PER EMAR. PT COMPLAINED OF MILD HEADACHE AND BACKACHE. RELIEVED WITH REPOSITIONING AND MEDICATION THROUGHOUT THE DAY. PTS IN TO SEE PATIENT THIS AFTERNOON. PT DENIED ANY NAUSEA, CHILLS, ANXIETY OR AGITATION. CAMERA MONITORING ON FOR PATIENT SAFETY.
[2020-10-06 04:41] LABS: BASOPHILS ABSOLUTE AUTO 0.04 K/mm3 (0.00-0.23); BASOPHILS PERCENT AUTO 1 % (0-2); EOSINOPHILS PERCENT AUTO 3 % (0-6); Hematocrit 37.9 % (33.0-51.0); Hemoglobin 12.1 g/dL (11.5-16.0); IMMATURE GRAN ABSOLUTE AUTO 0.02 K/mm3 (0.00-0.10); IMMATURE GRAN PERCENT AUTO 0 % (0-1); LYMPHOCYTES PERCENT AUTO 21 % (21-46); MONOCYTES ABSOLUTE AUTO 0.47 K/mm3 (0.16-1.47); MONOCYTES PERCENT AUTO 7 % (4-13); Mean Corpuscular HGB 30.5 pg (26.0-34.0); Mean Corpuscular HGB Conc 31.9 g/dL (31.5-36.5); Mean Corpuscular Volume 96 fL (80-100); Mean Platelet Volume 9.8 fL (9.1-12.4); NEUTROPHILS ABSOLUTE AUTO 4.92 K/mm3 (1.96-9.15); NEUTROPHILS PERCENT AUTO 69 % (41-73); Platelet Count 191 K/mm3 (150-400); RDW Coefficient Variation 12.2 % (11.7-14.2); RDW Standard Deviation 43.5 fL (35.1-46.3); Red Blood Cell Count 3.97 M/mm3 (3.80-5.20); White Blood Cell Count 7.15 K/mm3 (4.00-11.30)
[2020-10-06 05:00] LABS: Anion Gap 6 mmol/L (6-16); Blood Urea Nitrogen 10 mg/dL (8-24); CO2, Blood 26 mmol/L (21-32); Calcium, Blood 8.2 mg/dL (8.5-10.1); Chloride, Blood 111 mmol/L (98-108); Creatinine, Blood 0.71 mg/dL (0.40-1.00); Glomerular Filtration Rate >60 (60-); Glucose, Blood 98 mg/dL (70-99); Magnesium, Blood 1.7 mg/dL (1.6-2.4); Potassium, Blood 3.6 mmol/L (3.5-5.5); Sodium, Blood 143 mmol/L (136-145)
--- NOTE | 2020-10-06 06:40 | NUR ---
SHIFT SUMMARY PATIENT IS ALERT AND ORIENTED TO SELF ONLY. CIWA @2253 A 9, MEDICATED SEE EMAR. PATIENT SLOW TO RESPOND, CONFUSED AND HAS TROUBLE FOLLOWING DIRECTIONS AT TIMES. 1 PERSON ASSIST WITH BEDPAN, PATIENT WAS INCONTINENT OF BOWEL. PATIENT COMPLAINING OF BLADDER PAIN THEN VOIDED 600MLS AND STATED SHE FELT BETTER. MEDICATED FOR HIGH BP, SEE EMAR. 02 SATS >95% ON RA. PATIENT DID TRY TO GET OUT OF BED AT ONE POINT WITHOUT USING CALL LIGHT. BED ALARM ON, BED IN LOWEST POSITION, CALL LIGHT IN REACH.
--- NOTE | 2020-10-06 17:46 | NUR ---
TRANSFER: PT ALERT TO PLACE, SITUATION AND FAMILY. AT TIMES UNABLE TO STATE CORRECT TIME AND DATE. ON ROOM AIR SATING ABOVE 92%. TELE SHOWING SINUS RHYTHM. PT CONVERTED TO AFIB EARLIER THIS AM AND THEN BACK TO SINUS RHYTHM. NONSYMPTOMATIC. ON PO CARDIZEM. ISTRATE TO ROOM TODAY TO UPDATE PATIENT. NEW ORDERS PLACED FOR HEADACHE. PT SLEPT ON AND OFF TODAY. VITAL SIGNS STABLE. NO ACUTE CHANGES. TRANSFERED TO MEDICAL VIA BED.
--- NOTE | 2020-10-06 18:12 | NUR ---
SHIFT SUMMARY PATIENT ARRIVED TO THE FLOOR VIA GURNEY LATE THIS AFTERNOON. PATIENT TRANSFERED TO THE BED WITH VERBAL DIRECTION. PATIENT LAID DOWN AND STATED SHE DIDN'T FEEL WELL AT THIS TIME. CASTING ROOM HELPER TECH CALLED AT THIS TIME REPORTING PATIENT CONVERTED TO AFIB. PATIENT REMAINED LAYING IN BED UNTIL DINNER ARRIVED. PATIENT SITTING UPRIGHT IN BED EATING DINNER INDEPENDENTLY AT THIS TIME.
--- NOTE | 2020-10-07 04:15 | NUR ---
HR/RHYTHM AT 0256 PT CONVERTED TO AFIB c AVERAGE HR 116. AT 0344 HR INCREASED TO 140-150'S & WAS SUSTAINING c HIGHEST HR @156. INFORMED DR BASS @0357 PT HAD IV METOPROLOL BUT NO PARAMETERS FOR HR, SHE INFORMED THIS NURSE TO GIVE MED & SHE WOULD ADD PARAMETERS. CALLED GEOTHERMAL POWERPLANT MECHANIC @0404, PT AFIB HR 130-140'S, INFORMED TECH I WOULD BE GIVING IV METOPROLOL & TO MONITOR PT. AT 0408 TELE MONITOR CALLED STATING PT HAD CONVERTED BACK TO NSR @63, I STOPPED GIVING IV METOPROLOL. PT RECIEVED 3MG IV METOPROLOL. AT 0410 GEOTHERMAL POWERPLANT MECHANIC CALLED STATING PT WAS SB @53. WILL MONITOR PT.
--- NOTE | 2020-10-07 06:14 | NUR ---
SHIFT SUMMARY AOX3-UNAWARE DATE & HAS OCCASIONAL FORGETFULNESS & EXPRESSIVE APHASIA. REPORTED 9/10 JONES LAST NIGHT, STATED IT FELT LIKE "HEAD WAS BEING SMASHED c HAMMER", MEDICATED c TYLENOL & PAIN LEVEL DECREASED TO 4/1O. REPORTED NAUSEA MEDICATED c ZOFRAN, DENIES FURTHER NAUSEA. TELE NSR @66 THIS AM, DID CONVERT TO AFIB FOR JUST OVER 1 HR & HAD INCREASED HR, READ PREVIOUS NOTE. REST OF VITALS STABLE. CIWA RANGING 12, 8 & LAST ONE THIS AM WAS 6. CALL LIGHT & BED ALARM IN PLACE FOR PT FORGETS TO CALL FOR HELP WHEN GETTING OOB. HAS UNBALANCED GAIT. EQUAL DIRECTOR HUMAN SERVICES. NO FACIAL DROOPING. AWAITING PLACEMENT. WILL MONITOR.
--- NOTE | 2020-10-07 17:24 | NUR ---
SHIFT SUMMARY PATIENT ALERT AND ORIENTED, FORGETFUL THIS SHIFT. PATIENT EXPERIENCED AFIB THIS AM WITH HR INCREASING TO THE 150'S. DR HUBERTRATE NOTIFIED. ORDERS FOR IV METOPROLOL 5MG UP TO 3X FOR HR >100. HR CONVERTED TO SINUS AFTER 2 DOSES ADMINISTERED. NO FURTHER INSTANCES OF AFIB THIS SHIFT. PATIENT MEDICATED FOR HEADACHE 2X THIS SHIFT AND NAUSEA 1X THIS AFTERNOON. PATIENT'S SPOUSE IN THE ROOM VISITING THIS AFTERNOON. CIWA < 8 THIS SHIFT. PATIENT WORKED WITH PT/OT THIS SHIFT. PATIENT INCREASING IN CONGNATIVE ABILITY. PATIENT CURRENTLY LAYING DOWN NAPPING.
--- NOTE | 2020-10-08 04:27 | NUR ---
SHIFT SUMMARY ASSUMED CARE OF PT AT 1900. PT IS A/OX3 BUT HAS TIMES OF CONFUSION. PT ALSO HAS PROBLEMS FORMATING IDEAS AND REMEBERING THINGS. FOR EXAMPLE, PT WAS TRYING TO REMEMBER THE MOVIE JUANJOSE BUT SHE DESCRIBED THE MAIN CHARACTER AN ELF AND NOT AN OGER. PT ALSO GOT THE NAMES OF THE DAY AND FASHION ADVISER NURSES SWITCHED. PT ALSO WAKES UP THINKING SHE IS HOME. PT AWOKE LOOKING FOR HER MARIJUANA TABLETS FOR HER HEADACHE. PT DID NOT USE CALL LIGHT APPROPIATELY T/O THE NIGHT. PT USED 1P FWW AND GAITEBELT TO BATHROOM. PT IS STILL A LITTLE UNSTEADY. HEART SOUNDS REGULAR, TELE SHOWED PT WAS IN SINUS LAXMI, PT HR DROPPED ALL THE WAY INTO THE 30-40S WHEN SLEEPING. LUNG SOUNDS CLEAR. PT C/O HEADACHE, MEDICATED PER EMAR. PT C/O PAIN WITH URINATION, PT STATES THIS HAS HAPPENDED SINCE HARRIS WAS TAKEN OUT. CALL LIGHT IN REACH, BED IN LOWEST POSTION.
--- NOTE | 2020-10-08 06:05 | NUR ---
CARDIAC EVENT PT CONVERTED TO AFIB @ 0545. @ 0600 PT BED ALARM WENT OFF, WHEN ASKING PT WHAT WAS GOING ON SHE STATED THAT SHE WAS HAVINGAFIB. TELE MONITOR SHOWED PT WAS BETWEEN 105-120. LOPRESSOR GIVEN. PT STATES SHE JSOEFINA MEN HAAD THIS PAIN. WHEN ASKED FURTHER SHE WAS TALKING ABOUT HER URETHRA AND HOW IT WAS BURNING. PT STATED THAT SHE FELT LIKE SHE HAD AN INFECTION DOWN THERE. UPON EXAMINATION, URETHRA WAS FREE OF REDNESS BUT WAS SWOLLEN AND PAINFUL TO TOUCH.
--- NOTE | 2020-10-08 06:18 | NUR ---
CALLED DR MESA RE PT CONVERTING TO AFIB AND REPORTING VAGINAL PAIN, GOT ORDERS FOR A UA.
[2020-10-08 06:54] LABS: Bilirubin, Urine Neg (Neg); Blood, Urine 3+ (Neg); Glucose Qualitative, Urine Neg (Neg); Ketones, Urine Neg (Neg); Leukocyte Esterase, Urine 3+ (Neg); Nitrite, Urine Neg (Neg); Protein, Urine 1+ (Neg); Urobilinogen, Urine NORM (Normal)
[2020-10-08 07:09] LABS: Appearance, Urine Hazy (Clear); Color, Urine Yellow (P-Yellow)
[2020-10-08 07:10] LABS: Bacteria Few /hpf; Squamous Epithelial Cells Few /hpf (Few); White Blood Cells, Urine TNTC /hpf (0-5)
--- NOTE | 2020-10-08 11:09 | NUR ---
0800 WAREHOUSE FORKLIFT OPERATOR CALLED FOR RATE CHANGE TO AFIB 1 TEENS TO 120. ADMIN AM MEDS. [address] BUSCH. TO ADVISE. HE TO UP DOSE OF METOPROLOL . GIVE MAKEUP DOSE NOW. 1000 TELE CALLED. RATE NSR AT 67-68
--- NOTE | 2020-10-08 15:03 | NUR ---
TELE CALLED STATES HAS BEEN TRENDING DOWN TO 48-60. CALLED DR HERNANDES. ADVISED. STATES HOLD CARDIZEM THIS AFT
--- NOTE | 2020-10-08 15:11 | NUR ---
PER PT STATES ASYMPTOMATIC.
--- NOTE | 2020-10-08 16:03 | NUR ---
PT AMBULATED TO BATHROOM 1 ASST WITH FWW TWICE TODAY. DID WELL. H/R HAS BEEN LOW SINCE CONVERTED BACK TO NSR ABOUT 10 AM. TELE CALLED TODAY ABOUT 3PM. STATES IS NOW RUNNING 48-[address] HERNANDES, WE TO HOLD HEART MED THIS AFT. DID REVIEW AND MAKE CHANGES TODAY ON MEDS. NO OTHER CONCERNS AT THIS TIME. BEDIN LOW POSITION, CALL LITE IN REACH. BED ALARM ON FOR SAFETY
--- NOTE | 2020-10-08 19:20 | NUR ---
PT FLIPPED TO AFIB AT [address] HERNANDES. OKAY GIVE MAX THAT WAS HELD THIS AFT.
--- NOTE | 2020-10-09 04:30 | NUR ---
EQUIPMENT MAINTENANCE SUPERVISOR SUMMARY PT A&OX3, FORGETFUL AND CONFUSED AT TIMES. MILD APHASIA NOTED. PT HAD MULTIPLE ATTEMPTS OF SELF TRANSFERRING THIS SHIFT. PT SAFELY REDIRECTED BACK TO BED. PT EDUCATED IN PROPER USE OF CALL LIGHT FOR ASSISTANCE. PT MEDICATED FOR FEELINGS OF ANXIETY THIS SHIFT, MEDICATED WITH ATIVAN 1MG IV X1. PT CALM AND RESTED IN BED MOST OF SHIFT. PT ALSO C/O HEADACHE, MEDICATED PER EMAR. NO C/O CP, SOB, OR N&V. PT ON TELE, NSR 6O-62BPM PER HVAC COMMERCIAL SALESPERSON. PT AMBULATED WELL TO THE BATHROOM WITH 1P SBA W/ FWW. NO C/O DYSURIA. PT RESTING IN BED AT THIS TIME. BED AT LOWEST POSITION W/ ALARM ON. CALL LIGHT WITHIN REACH. WILL PROVIDE BSR TO ONCOMING RN.
[2020-10-09 07:04] LABS: BASOPHILS ABSOLUTE AUTO 0.04 K/mm3 (0.00-0.23); BASOPHILS PERCENT AUTO 1 % (0-2); EOSINOPHILS ABSOLUTE AUTO 0.27 K/mm3 (0.00-0.68); EOSINOPHILS PERCENT AUTO 5 % (0-6); Hemoglobin 13.3 g/dL (11.5-16.0); IMMATURE GRAN ABSOLUTE AUTO 0.02 K/mm3 (0.00-0.10); IMMATURE GRAN PERCENT AUTO 0 % (0-1); LYMPHOCYTES ABSOLUTE AUTO 1.46 K/mm3 (0.84-5.20); LYMPHOCYTES PERCENT AUTO 25 % (21-46); MONOCYTES ABSOLUTE AUTO 0.49 K/mm3 (0.16-1.47); MONOCYTES PERCENT AUTO 9 % (4-13); Mean Corpuscular HGB 30.9 pg (26.0-34.0); Mean Corpuscular HGB Conc 32.4 g/dL (31.5-36.5); Mean Corpuscular Volume 95 fL (80-100); NEUTROPHILS PERCENT AUTO 61 % (41-73); Platelet Count 237 K/mm3 (150-400); RDW Coefficient Variation 12.4 % (11.7-14.2); RDW Standard Deviation 43.2 fL (35.1-46.3); White Blood Cell Count 5.78 K/mm3 (4.00-11.30)
[2020-10-09 07:22] LABS: Anion Gap 5 mmol/L (6-16); Blood Urea Nitrogen 11 mg/dL (8-24); Bun/Creatinine Ratio 18.5 (12.0-20.0); CO2, Blood 26 mmol/L (21-32); Calcium, Blood 8.6 mg/dL (8.5-10.1); Chloride, Blood 110 mmol/L (98-108); Glomerular Filtration Rate >60 (60-); Glucose, Blood 88 mg/dL (70-99); Potassium, Blood 4.1 mmol/L (3.5-5.5); Sodium, Blood 141 mmol/L (136-145)
--- NOTE | 2020-10-09 08:25 | NUR ---
PER STREET CAR INSPECTOR PT IS NOW AFIB WITH HEART RATE IN THE ONE TEENS TO 120'S, WILL GIVE AM MEDS
--- NOTE | 2020-10-09 08:45 | NUR ---
PO CARDIZEM AND METOPROLOL GIVEN PER EMAR. SBA TO BR AND RETURN TO BEDSIDE CHAIR. POURER BULL LADLE REPORTS HR IN THE 150'S, WILL MONITOR.
--- NOTE | 2020-10-09 09:30 | NUR ---
COIL TIER REPORTS PT'S HEART RATE TOUCHING 170'S, PT DENIES C.P., SOB. WILL MEDICATE PER EMAR
--- NOTE | 2020-10-09 09:40 | NUR ---
5 MG IV LOPRESSOR GIVEN, HR REPORTED AT 158. WILL MONITOR.
--- NOTE | 2020-10-09 10:40 | NUR ---
HEART RATE IS IN THE 130'S PER DRY YARD WORKER. ISTRATE AT BEDSIDE AND IS AWARE OF PT'S HR THIS MORNING
--- NOTE | 2020-10-09 10:45 | NUR ---
PT CONVERTED TO SINUS RYTHMN WITH A HEART RATE OF 65. DR HERNANDES REMAINS AT BEDSIDE AND IS AWARE. WILL CONTINUE TO MONITOR
--- NOTE | 2020-10-09 18:45 | NUR ---
PT CONVERTED TO AFIB FOR SHORT TIMES THIS AFTERNOON AND RETURNED TO SB/SR, SEE STRIPS ON CHART. IN SR AT THIS TIME. NO ACUTE CHANGES, WILL CONTINUE TO MONITOR AND REPORT TO ONCOMING RN
--- NOTE | 2020-10-10 04:44 | NUR ---
WEAVING TEACHER SUMMARY PT A&OX3, FORGETFUL. CONT TO HAVE S/S OF MILD APHASIA. PT CONFUSED AT TIMES. MULTIPLE SELF TRANSFERRING ATTEMPTS THIS SHIFT, PT REDIRECTED BACK TO BED SAFELY, EDUCATED ON PROPER USE OF CALL LIGHT. PT MEDICATED FOR HEADACHE PER EMAR, ALSO MEDICATED FOR FEELINGS OF ANXIETY PER EMAR. PT ON TELE SR 60 BPM. RESTED IN BED MOST OF SHIFT, WAS ABLE TO AMBULATE TO BATHROOM MULTIPLE TIMES THIS SHIFT W/ 1P SBA. NO C/O DYSURIA. BED AT LOWEST POSITION, BED ALARM ON. CALL LIGHT WITHIN REACH.
[2020-10-10 05:35] LABS: BASOPHILS ABSOLUTE AUTO 0.04 K/mm3 (0.00-0.23); BASOPHILS PERCENT AUTO 1 % (0-2); EOSINOPHILS ABSOLUTE AUTO 0.22 K/mm3 (0.00-0.68); EOSINOPHILS PERCENT AUTO 4 % (0-6); Hematocrit 41.5 % (33.0-51.0); Hemoglobin 13.2 g/dL (11.5-16.0); IMMATURE GRAN ABSOLUTE AUTO 0.02 K/mm3 (0.00-0.10); IMMATURE GRAN PERCENT AUTO 0 % (0-1); LYMPHOCYTES ABSOLUTE AUTO 1.95 K/mm3 (0.84-5.20); LYMPHOCYTES PERCENT AUTO 38 % (21-46); MONOCYTES ABSOLUTE AUTO 0.48 K/mm3 (0.16-1.47); MONOCYTES PERCENT AUTO 9 % (4-13); Mean Corpuscular HGB 30.3 pg (26.0-34.0); Mean Corpuscular HGB Conc 31.8 g/dL (31.5-36.5); Mean Corpuscular Volume 95 fL (80-100); NEUTROPHILS ABSOLUTE AUTO 2.48 K/mm3 (1.96-9.15); NEUTROPHILS PERCENT AUTO 48 % (41-73); Platelet Count 247 K/mm3 (150-400); RDW Coefficient Variation 12.3 % (11.7-14.2); RDW Standard Deviation 43.9 fL (35.1-46.3); Red Blood Cell Count 4.36 M/mm3 (3.80-5.20); White Blood Cell Count 5.19 K/mm3 (4.00-11.30)
[2020-10-10 05:54] LABS: Anion Gap 6 mmol/L (6-16); Blood Urea Nitrogen 13 mg/dL (8-24); Bun/Creatinine Ratio 20.7 (12.0-20.0); CO2, Blood 26 mmol/L (21-32); Calcium, Blood 8.8 mg/dL (8.5-10.1); Chloride, Blood 109 mmol/L (98-108); Creatinine, Blood 0.63 mg/dL (0.40-1.00); Glomerular Filtration Rate >60 (60-); Glucose, Blood 85 mg/dL (70-99); Sodium, Blood 141 mmol/L (136-145)
--- NOTE | 2020-10-11 05:07 | NUR ---
MANUFACTURING COST ESTIMATOR SUMMARY PT A&OX3, FORGETUL AND CONFUSED AT TIMES, REDIRECTABLE. PT MADE MULTIPLE ATTEMPTS TO SELF TRANSFER TO BATHROOM THIS SHIFT. PT REDIRECTED AND EDUCATED ON PROPER USE OF CALL LIGHT. PT MEDICATED FOR HEADACHE PER EMAR. ALSO MEDICATED FOR FEELINGS OF ANXIETY PER EMAR. AT APPROX 2130 THIS SHIFT MON TECH NOTIFIED THIS NURSE THAT PT IS AT AFIB FLUCTUATING FROM 117-128BPM, PT DENIES ANY CP/PRESSURE/DISCOMFORT. MEDICATED W/ PRN IV LOPRESSOR ORDERED. AT APPROX 2330 PT STILL AT AFIB IN 130's PER AUTISM MOTOR SPECIALIST, PRN IV LOPRESSOR ADMIN ORDERED, PT CONT TO BE ASYMPTOMATIC. AT APPROX 6 MON TECH REPORTED THAT PT's HR FLUCTUATING BET 90-116BPM, AND AROUND 0330 PT CONVERTED TO SINUS LAXMI 53-58BPM, PT CONT TO BE ASYMPTOMATIC, DENIES ANY DISCOMFORT AND RESTED IN BED. PT HAD NO C/O ANY CP, SOB OR N&V THIS SHIFT. AMBULATED TO BATHROOM W/ 1P SBA W/O ISSUES. PT RESTING IN BED AT THIS TIME. BED AT LOWEST POSITION. CALL LIGHT WITHIN REACH.
--- NOTE | 2020-10-11 18:03 | NUR ---
SHIFT SUMMARY PT AOX2-3. PT USES CALL LIGHTS. PT IS SOMEWHAT CONFUSED AT TIMES. PT STATED THAT SHE HAS SOME DISCOMFORT URINATING, RECEIVED AN ORDER OF PYRIDIUM AND EDUCATED THE PT ABOUT THE MEDICATION. PT ALSO MEDICATED FOR MIGRAINE. BED IS IN THE LOWEST POSITION AND CALL LIGHT WITHIN REACH
--- NOTE | 2020-10-12 04:13 | NUR ---
SHIFT SUMMARY: VSS. SINUS BRADYCARDIA W/ PULSE 53-57. DENIES CP, PRESSURE, AND SOB. NO UNILATERAL WEAKNESS. DENIES N/T. SLOW TO RESPOND AND SPEECH SLIGHLTY SLURRED. MED X 1 FOR LOW ABD PAIN EFFECTIVELY. CIWA SCORE OF 4. PT HAS SLEPT WELL. NO ACUTE CHANGES OVERNIGHT. WCTM.
--- NOTE | 2020-10-12 16:22 | NUR ---
SHIFT SUMMARY PT AOX3 FORGETFUL AT TIMES- BUT ABLE TO FOLLOW DIRECTION. PT C/O HEADACHE AND ABD DISCOMFORT; GIVEN PYRIDIUM AND PAIN MEDICATION. PT IS ON BED ALARM FOR INTERMITTENT CONFUSION. BED IS IN THE LOWEST POSITION AND CALL LIGHT WITHIN REACH
--- NOTE | 2020-10-13 05:49 | NUR ---
SHIFT SUMMARY: SINUS BRADYCARDIA W/ REPORTED PULSE 49-52. AFEB. DENIES LOW ABD PAIN TONIGHT. MED X 1 FOR JONES. PT HAS SINCE SLEPT WELL. CALLS APPROPRIATELY FOR ASSISTANCE. AMB IN ROOM W/SBA. NO UNILATERAL WEAKNESS. PUPILS EQUAL. REPORTS CONTINUED VISUAL DISTURBANCES IN R EYE, ALTHOUGH IMPROVING. SPEECH SOUNDS CLEARER. CONT TO BE SLOW TO RESPOND. NO ACUTE CHANGES OVERNIGHT. WILL CONT TO MONITOR.
--- NOTE | 2020-10-13 10:09 | NUR ---
AT ABOUT 0905 PER PCU TECH HR AFIB 150-160. AWARE AND VERBAL FOR CARDIZEN 10 MG IV. PATIENT GIVEN MED AND CONVERTED TO SR AT 77 AT ABOUT 0950.
[2020-10-13 13:22] LABS: Influenza A, PCR Negative (NEGATIVE); Influenza B, PCR Negative (NEGATIVE); Resp Syncytial Virus, PCR Negative (NEGATIVE); SARS-Cov-2 (COVID-19) PCR, MMC Negative (NEGATIVE)
[2020-10-13 13:32] LABS: Anion Gap 6 mmol/L (6-16); Blood Urea Nitrogen 14 mg/dL (8-24); Bun/Creatinine Ratio 24.6 (12.0-20.0); CO2, Blood 26 mmol/L (21-32); Calcium, Blood 9.2 mg/dL (8.5-10.1); Chloride, Blood 106 mmol/L (98-108); Creatinine, Blood 0.57 mg/dL (0.40-1.00); Glomerular Filtration Rate >60 (60-); Glucose, Blood 88 mg/dL (70-99); Potassium, Blood 4.3 mmol/L (3.5-5.5); Sodium, Blood 138 mmol/L (136-145)
--- NOTE | 2020-10-13 14:48 | NUR ---
ALERT. FORGETFUL. SLOW TO RESPOND. POSSIBLE D'C TODAY OR TOMORROW. WAS AFIB 160'S THIS AM FOR LESS THAN ONE HOUR. HAS BEEN SR IN 70'S SINCE. DENIES ANY C.P/PRESSURE. UNLABORED RESPIRATIONS. POWERGLIDE LT UPPER ARM PATENT BUT HARD TO FLUSH. STANDBY ASSIST. TM
--- NOTE | 2020-10-13 16:22 | NUR ---
PER PCU LINDSEY MARIO, PATIENT GOING BACK DOWN 50'S SB. WAS SB THIS AM, THEN AFIB 160'S THEN CONVERTED TO SR AND NOW BCK TO SB. WCTM
--- NOTE | 2020-10-13 18:26 | NUR ---
PER U AFIB 130-150 AFIB. B.P. TAKEN AND WILL GIVE MEDS
--- NOTE | 2020-10-13 18:44 | NUR ---
PER PCU TECH HEART RATE TRENDING DOWN 1TEENS TO HIGH OF 139. WCTM
--- NOTE | 2020-10-14 | NUR ---
PT was in afib rate 120's to 130's. Lopresser 5 mg IV given x 1 & PT converted back to NSR several hours later per tele monitor December report. PT had CO headache & muscular aches 650 mg tylenol helpful to relieve. PT says mild eye blurring since CVA and increased headache. She expresses stress related to animals at home & elderly Mother who lives in [address] on PT's property. Planning post CVA rehab. DC pending stabilization of AFIB with RVR.
--- NOTE | 2020-10-14 04:53 | NUR ---
PT rested well woke up this am CO nausea & headache pain . Says she thinks pain may be muscular. Tylenol offered. ERICK chávez PT says last drink was around 35 days ago .
--- NOTE | 2020-10-14 07:13 | NUR ---
PT co nausea & headache relieved by iv zofran & tylenol 650 mg helpful. PT denies swallow deficit, speech slightly slow but clear. Up with SBA with steady gait. CIWA neg.
--- NOTE | 2020-10-14 14:10 | NUR ---
DISCUSS PYRIDIUM WITH ORDER SAYS FOR 2 DAYS. OK TO CANCEL. ASK ABOUT PAIN MEDS CANCEL IMITREX AND FIORECET PER . ORDER IBUPROFEN 400 MG Q 6 HOURS PRN PAIN.
--- NOTE | 2020-10-14 14:45 | NUR ---
[employer] MGR AWARE PATIENT NO LONGER IN RESTRAINTS.
--- NOTE | 2020-10-14 16:43 | NUR ---
ALERT TO SELF. MOSTLY NONSENSICAL WORDS. SLOW EATTER (2 HOURS FOR LUNCH). COOPERATIVE AT THIS TIME. AMBULATORY IN HALLWAY W/STUDENT NURSES. MEDICATED FOR PAIN WITH GOOD RESULTS. AWAITING PLACEMENT. UNLABORED RESPIRATIONS. WCTM
--- NOTE | 2020-10-14 17:03 | NUR ---
ALERT. ORIENTED BUT VERY FORGETFUL. VERY IMPULSIVE- SHE WENT IN SHOWER AFTER TAKING OFF HER TELE MONITOR , BUT IV NOT WRAPPED. MEDICATED FOR NAUSEA AND PAIN T/O DAY. PER PCU TECH HAS BEEN SB 49 WITH HX OF THIS OFF AND ON FOR 2 WEEKS. HAS NOT BEEN AFIB TODAY. UNLABORED RESPIRATIONS. WCTM
--- NOTE | 2020-10-15 03:31 | NUR ---
SHIFT SUMMARY PATIENT HAD NO ACUTE CHANGES OBSERVED. AXOX 2-3 AND SLOW TO RESPOND,IMPULSIVE, AND FORGETFUL. POWERGLIDE MARILYNN INTACT. INFORMATION MANAGEMENT SPECIALIST REPORTS SB 52. DENIES PAIN, SOB, AND N/V. VSS/AFEBRILE. PATIENT ABLE TO SLEEP THROUGHOUT SHIFT. CALL LIGHT IN REACH. BED IN LOWEST POSITION. WILL CONTINUE TO MONITOR UNTIL DAY SHIFT NURSE ASSUMES CARE.
[2020-10-15] MEDS ORDERED: Acetaminophen325 M1 PO (09:37)
[2020-10-15] MEDS ORDERED: ATOR40TA PO (09:38)
[2020-10-15] MEDS ORDERED: BUTALB-ACETAMI1 EAC6 PO (09:38)
[2020-10-15] MEDS ORDERED: METO25ER PO (09:39)
[2020-10-15] MEDS ORDERED: PROC5 PO (09:39)
[2020-10-15] MEDS ORDERED: ONDA4ODT MM (09:39)
[2020-10-15] MEDS ORDERED: B-1100 M1 PO (09:40)
[2020-10-15] MEDS ORDERED: XARELTO20 MG PO (09:40)
[2020-10-15] MEDS ORDERED: VISBIOME 112.51 EACH PO (09:40)
--- NOTE | 2020-10-15 09:55 | NUR ---
REPORT CALLED TO RUTH AT [facility] IN [place]. MANA ARAUZ. PT REPORTS SHE WILL NOTIFY HER AND HE WAS AWARE SHE SHOULD BE LEAVING TODAY. PT HAS BEEN INDEP UP IN ROOM TODAY, A/OX4. AWAITING [facility] TRANSPORT AT THIS TIME.
--- NOTE | 2020-10-15 10:52 | NUR ---
PT DISCHARGED TO [facility] AT 1052 VIA [facility] W/C.
== END 2020-10-15 10:52 | DRG 65 ==
LOC: ER 17:24 → MEDS 17:25 → PCU 10-03 15:47 → MEDS 10-06 17:18 → ENPENDDIS 10-07 12:58 → MEDS 10-15 10:52
PROVIDERS: Emergency Medicine; Family Medicine; Internal Medicine; Physician Assistant; ADMIT Family Medicine
DX: I63.9 Cerebral infarction, unspecified (principal); F10.239 Alcohol dependence with withdrawal, unspecified; N39.0 Urinary tract infection, site not specified; Z20.822 Contact with and (suspected) exposure to COVID-19; G43.909 Migraine, unspecified, not intractable, without status migrainosus; I48.0 Paroxysmal atrial fibrillation; E66.9 Obesity, unspecified; F10.10 Alcohol abuse, uncomplicated; H53.40 Unspecified visual field defects; H53.47 Heteronymous bilateral field defects; I10 Essential (primary) hypertension; R47.01 Aphasia; R47.81 Slurred speech; Z68.38 Body mass index [BMI] 38.0-38.9, adult; M79.7 Fibromyalgia; F32.9 Major depressive disorder, single episode, unspecified
CPT/HCPCS: 0241U; 36415; 51702; 70450; 70496; 70498; 80048; 80053; 80061; 81001; 83735; 84100; 85025; 87077; 87086; 87186; 92523; 93005; 93010; 93306; 94762; 96374; 96375; 97110; 97112; 97116; 97129; 97130; 97162; 97166; 97530; 97535; 99285-25; A9270; C1751; G0378; J0360; J0696; J0780; J1170; J1885; J2060; J2405; J2550; J2765; J3010; J7120; Q9967

== ENCOUNTER 2020-10-20 17:29 | Inpatient (IN) | payer OTHER ==
[~2020-10-20] VITALS: Ht 162.6 cm; Wt 107.0 kg
[~2020-10-20 17:29] MED LIST changes: +ATOR40TA PO; +Acetaminophen325 M1 PO; +B-1100 M1 PO; +BUTALB-ACETAMI1 EAC6 PO; +METO25ER PO; +ONDA4ODT MM; +PROC5 PO; +VISBIOME 112.51 EACH PO; +XARELTO20 MG PO
[2020-10-20 18:04] LABS: BASOPHILS ABSOLUTE AUTO 0.03 K/mm3 (0.00-0.23); BASOPHILS PERCENT AUTO 0 % (0-2); EOSINOPHILS ABSOLUTE AUTO 0.07 K/mm3 (0.00-0.68); EOSINOPHILS PERCENT AUTO 1 % (0-6); Hematocrit 44.4 % (33.0-51.0); Hemoglobin 14.6 g/dL (11.5-16.0); IMMATURE GRAN ABSOLUTE AUTO 0.02 K/mm3 (0.00-0.10); IMMATURE GRAN PERCENT AUTO 0 % (0-1); LYMPHOCYTES ABSOLUTE AUTO 1.51 K/mm3 (0.84-5.20); LYMPHOCYTES PERCENT AUTO 15 % (21-46); MONOCYTES ABSOLUTE AUTO 0.61 K/mm3 (0.16-1.47); MONOCYTES PERCENT AUTO 6 % (4-13); Mean Corpuscular HGB 30.2 pg (26.0-34.0); Mean Corpuscular HGB Conc 32.9 g/dL (31.5-36.5); Mean Corpuscular Volume 92 fL (80-100); Mean Platelet Volume 10.1 fL (9.1-12.4); NEUTROPHILS ABSOLUTE AUTO 7.91 K/mm3 (1.96-9.15); NEUTROPHILS PERCENT AUTO 78 % (41-73); Platelet Count 223 K/mm3 (150-400); RDW Standard Deviation 40.7 fL (35.1-46.3); Red Blood Cell Count 4.84 M/mm3 (3.80-5.20); White Blood Cell Count 10.15 K/mm3 (4.00-11.30)
[2020-10-20 18:22] LABS: Alanine Aminotransfer (ALT/SGP 239 U/L (12-78); Albumin, Blood 3.8 g/dL (3.4-5.0); Alk Phos 142 U/L (50-136); Anion Gap 7 mmol/L (6-16); Aspartate Aminotrans (AST/SGOT 185 U/L (12-37); Bilirubin, Total 0.5 mg/dL (0.1-1.0); Blood Urea Nitrogen 13 mg/dL (8-24); Bun/Creatinine Ratio 20.4 (12.0-20.0); CO2, Blood 24 mmol/L (21-32); Calcium, Blood 9.1 mg/dL (8.5-10.1); Chloride, Blood 108 mmol/L (98-108); Creatinine, Blood 0.64 mg/dL (0.40-1.00); Globulin, Blood 3.8 g/dL (2.2-4.0); Glomerular Filtration Rate >60 (60-); Glucose, Blood 122 mg/dL (70-99); Potassium, Blood 3.1 mmol/L (3.5-5.5); Sodium, Blood 139 mmol/L (136-145); Total Protein, Blood 7.6 g/dL (6.4-8.2)
--- NOTE | 2020-10-21 04:24 | NUR ---
SHIFT SUMMARY NEW ER ADMIT THIS SHIFT (2214), A&O, ST BY ASSIST TO BR, MEDICATED X1 FOR PAIN, NO OTHER C/O ANY KIND, CALL LIGHT IN REACH, BED ALARM IN PLACE, WILL CONT TO MONITOR UNTIL REPORT GIVEN TO DAY RN.
[2020-10-21 04:40] LABS: BASOPHILS ABSOLUTE AUTO 0.03 K/mm3 (0.00-0.23); BASOPHILS PERCENT AUTO 0 % (0-2); EOSINOPHILS ABSOLUTE AUTO 0.09 K/mm3 (0.00-0.68); EOSINOPHILS PERCENT AUTO 1 % (0-6); Hemoglobin 13.5 g/dL (11.5-16.0); IMMATURE GRAN ABSOLUTE AUTO 0.02 K/mm3 (0.00-0.10); IMMATURE GRAN PERCENT AUTO 0 % (0-1); LYMPHOCYTES ABSOLUTE AUTO 1.39 K/mm3 (0.84-5.20); LYMPHOCYTES PERCENT AUTO 18 % (21-46); MONOCYTES ABSOLUTE AUTO 0.53 K/mm3 (0.16-1.47); MONOCYTES PERCENT AUTO 7 % (4-13); Mean Corpuscular HGB Conc 32.9 g/dL (31.5-36.5); Mean Corpuscular Volume 94 fL (80-100); Mean Platelet Volume 10.3 fL (9.1-12.4); NEUTROPHILS ABSOLUTE AUTO 5.58 K/mm3 (1.96-9.15); NEUTROPHILS PERCENT AUTO 73 % (41-73); Platelet Count 186 K/mm3 (150-400); RDW Coefficient Variation 12.3 % (11.7-14.2); RDW Standard Deviation 42.8 fL (35.1-46.3); Red Blood Cell Count 4.35 M/mm3 (3.80-5.20); White Blood Cell Count 7.64 K/mm3 (4.00-11.30)
[2020-10-21 05:02] LABS: Alanine Aminotransfer (ALT/SGP 173 U/L (12-78); Albumin, Blood 3.1 g/dL (3.4-5.0); Albumin/Globulin Ratio 0.9 (0.8-1.8); Alk Phos 119 U/L (50-136); Anion Gap 5 mmol/L (6-16); Aspartate Aminotrans (AST/SGOT 111 U/L (12-37); Bilirubin, Total 0.5 mg/dL (0.1-1.0); Blood Urea Nitrogen 10 mg/dL (8-24); Bun/Creatinine Ratio 17.4 (12.0-20.0); CO2, Blood 27 mmol/L (21-32); Calcium, Blood 8.5 mg/dL (8.5-10.1); Chloride, Blood 110 mmol/L (98-108); Creatinine, Blood 0.57 mg/dL (0.40-1.00); Globulin, Blood 3.6 g/dL (2.2-4.0); Glomerular Filtration Rate >60 (60-); Glucose, Blood 83 mg/dL (70-99); Potassium, Blood 3.8 mmol/L (3.5-5.5); Sodium, Blood 142 mmol/L (136-145); Total Protein, Blood 6.7 g/dL (6.4-8.2)
--- NOTE | 2020-10-21 17:11 | NUR ---
SHIFT SUMMARY PT HAS BEEN UP TO BATHROOM WITH 1 PERSON ASSIST USING FWW SEVERAL TIMES TODAY. HAS NAUSEA PAIN INCREASES. TOLERATING SIPS OF LIQUIDS AT THIS TIME. MEDICATED WITH ATIVAN FOR MRI THIS MORNING AND HAS STRUGGLING WITH SPEECH SINCE THEN AND CLEARLY COMMUNICATING. ABLE TO ANSWER ORIENTATION QUESTIONS BUT FORGETTING HOW TO USE CALL BUTTON OR WHICH BUTTON TO PUSH FOR ASSISTANCE. AT BEDSIDE THIS AFTERNOON FOR SHORT TIME. APPEARS MORE CLEAR MEDS START TO WEAR OFF AND PAIN STARTS TO INCREASE. REMAINS NPO EXCEPT SIPS OF LIQUIDS.
--- NOTE | 2020-10-22 03:34 | NUR ---
SHIFT SUMMARY RESTING QUIETLY WITH FEW INTERRUPTIONS THIS SHIFT. WAS AWAKE AT SHIFT COMMENCE, NOTED SOME SLOW RESPONSE TO VERBAL INTERACTIONS, BUT LATER SEEMED ALERT TO QUESTIONS ASKED. (AM RN REPORTED POSSIBLE RESCTION TO MEDS AND MD WAS AWARE OF IT). NO NOTED SAID BEHAVIOR SINCE THEN, IVF INFUSING. CALL LIGHT IN REACH. WILL CONTINUE TO MONITOR
[2020-10-22 05:41] LABS: Alanine Aminotransfer (ALT/SGP 117 U/L (12-78); Albumin, Blood 3.1 g/dL (3.4-5.0); Albumin/Globulin Ratio 0.8 (0.8-1.8); Alk Phos 112 U/L (50-136); Anion Gap 7 mmol/L (6-16); Aspartate Aminotrans (AST/SGOT 61 U/L (12-37); Bilirubin, Total 0.8 mg/dL (0.1-1.0); Blood Urea Nitrogen 6 mg/dL (8-24); Bun/Creatinine Ratio 9.5 (12.0-20.0); CO2, Blood 25 mmol/L (21-32); Calcium, Blood 8.9 mg/dL (8.5-10.1); Chloride, Blood 107 mmol/L (98-108); Creatinine, Blood 0.63 mg/dL (0.40-1.00); Globulin, Blood 3.9 g/dL (2.2-4.0); Glomerular Filtration Rate >60 (60-); Glucose, Blood 65 mg/dL (70-99); Potassium, Blood 3.8 mmol/L (3.5-5.5); Sodium, Blood 139 mmol/L (136-145)
--- NOTE | 2020-10-22 17:50 | NUR ---
SHIFT SUMMARY: NO ACUTE EVENTS. DENIED NAUSEA. MEDICATED FOR PAIN PER EMAR WITH GOOD RELIEF. COMPLIANT WITH NPO, BUT GAVE APPLE JUICE FOR BG 65 FROM MORNING LABS, ASYMPTOMATIC. HAD A SHOWER, FATIGUED AFTER. IS AWAITING POSSIBLE TRANSFER TO DIFFERENT HOSPITAL FOR ERCP.
--- NOTE | 2020-10-23 03:59 | NUR ---
PHONE CALL FROM [facility] RECEIVED PHONE CALL FROM MARY KAY HOLDER FROM [facility]. SHE NOTIFIED THIS NURSE THAT OF THIS TIME, THERE IS STILL NO BEDS AVAILABLE AT [facility] FOR PT. THIS RN ALSO PROVIDED MARY KAY HOLDER AN UPDATE ON PT STATUS. [facility] WILL CALL FOR UPDATES IF BED IS ALREADY AVAILABLE AT THEIR FACILITY.
--- NOTE | 2020-10-23 04:49 | NUR ---
OPTICAL LATHE OPERATOR SUMMARY PT A&OX3, ABLE TO MAKE NEEDS KNOWN. PLEASANT AND COOPERATIVE TO CARE. NO ACUTE CHANGES NOTED TO PT THIS SHIFT. NO C/O PAIN OR ANY DISCOMFORT. NO C/O CP, SOB, OR N&V. PT CONT ON NPO, COMPLIANT. CALM AND RESTED IN BED T/O SHIFT. BED AT LOWEST POSITION. CALL LIGHT WITHIN REACH. AWAITING POSSIBLE TRANSFER TO A DIFFERENT HOSPITAL FOR ERCP. PT IS CURRENTLY RESTING IN ROOM AT THIS TIME.
--- NOTE | 2020-10-23 11:23 | NUR ---
[facility] CALLED FOR UPDATE ON PT CONDITION, NO BED ASSIGNMENT AT THIS TIME.
--- NOTE | 2020-10-23 19:36 | NUR ---
SHIFT SUMMARY: NO ACUTE EVENTS TODAY. C/O PAIN IN MID-BACK AND UPPER ABDOMEN; MEDICATED PER EMAR WITH RELIEF. AMBULATING IN ROOM, GAIT STEADY. DENIED NAUSEA. NPO FOR POSSIBLE LAP ANALI TOMORROW, DR. HERNANDEZ HAS BEEN CONSULTED.
--- NOTE | 2020-10-24 04:08 | NUR ---
ESTIMATOR AND DRAFTER SUPERVISOR SUMMARY PT A&OX3, ABLE TO MAKE NEEDS KNOWN. PLEASANT AND COOPERATIVE TO CARE. MEDICATED FOR PAIN PER EMAR. NO C/O CP, SOB, OR N&V. NPO FOR POSSIBLE LAP ANALI TODAY 10/24/20. PT CALM AND RESTED IN BED T/O SHIFT. PT SBA TO THE BATHROOM. BED AT LOWEST POSITION. CALL LIGHT WITHIN REACH.
[2020-10-24 05:02] LABS: BASOPHILS ABSOLUTE AUTO 0.03 K/mm3 (0.00-0.23); BASOPHILS PERCENT AUTO 1 % (0-2); EOSINOPHILS ABSOLUTE AUTO 0.21 K/mm3 (0.00-0.68); EOSINOPHILS PERCENT AUTO 4 % (0-6); Hematocrit 34.1 % (33.0-51.0); Hemoglobin 11.2 g/dL (11.5-16.0); IMMATURE GRAN ABSOLUTE AUTO 0.01 K/mm3 (0.00-0.10); IMMATURE GRAN PERCENT AUTO 0 % (0-1); LYMPHOCYTES ABSOLUTE AUTO 1.21 K/mm3 (0.84-5.20); LYMPHOCYTES PERCENT AUTO 23 % (21-46); MONOCYTES PERCENT AUTO 9 % (4-13); Mean Corpuscular HGB 30.4 pg (26.0-34.0); Mean Corpuscular HGB Conc 32.8 g/dL (31.5-36.5); Mean Corpuscular Volume 93 fL (80-100); Mean Platelet Volume 10.5 fL (9.1-12.4); NEUTROPHILS ABSOLUTE AUTO 3.37 K/mm3 (1.96-9.15); NEUTROPHILS PERCENT AUTO 63 % (41-73); Platelet Count 171 K/mm3 (150-400); RDW Coefficient Variation 11.9 % (11.7-14.2); RDW Standard Deviation 41.1 fL (35.1-46.3); Red Blood Cell Count 3.68 M/mm3 (3.80-5.20); White Blood Cell Count 5.33 K/mm3 (4.00-11.30)
[2020-10-24 05:40] LABS: Alanine Aminotransfer (ALT/SGP 56 U/L (12-78); Albumin, Blood 2.8 g/dL (3.4-5.0); Albumin/Globulin Ratio 0.8 (0.8-1.8); Alk Phos 82 U/L (50-136); Anion Gap 4 mmol/L (6-16); Aspartate Aminotrans (AST/SGOT 22 U/L (12-37); Bilirubin, Total 0.5 mg/dL (0.1-1.0); Blood Urea Nitrogen 9 mg/dL (8-24); Bun/Creatinine Ratio 14.8 (12.0-20.0); CO2, Blood 28 mmol/L (21-32); Calcium, Blood 8.6 mg/dL (8.5-10.1); Chloride, Blood 106 mmol/L (98-108); Creatinine, Blood 0.61 mg/dL (0.40-1.00); Globulin, Blood 3.3 g/dL (2.2-4.0); Glomerular Filtration Rate >60 (60-); Glucose, Blood 77 mg/dL (70-99); Potassium, Blood 3.7 mmol/L (3.5-5.5); Sodium, Blood 138 mmol/L (136-145); Total Protein, Blood 6.1 g/dL (6.4-8.2)
[2020-10-24 06:23] LABS: Influenza A, PCR NEGATIVE (NEGATIVE); Influenza B, PCR NEGATIVE (NEGATIVE); Resp Syncytial Virus, PCR NEGATIVE (NEGATIVE); SARS-Cov-2 (COVID-19) PCR, MMC NEGATIVE (NEGATIVE)
--- NOTE | 2020-10-24 08:00 | NUR ---
PT PENDING LAP ANALI THIS AM. EXPECTED TIME 10AM. PT A/O X3 PLEASANT COOP LIGHT العراقي AT MOMENT IN BACK. EXPECTING MOVEMENT WILL HELP. H/R REG, NO MURMER NOTED. NO TELE, LUNGSCLEAR, RESP EASY, UNLABORED. ON R.A. BT X4 LAST BM 2 DAYS. HAS BEEN NPO FOR PROCEDURE. VOIDS SBA TO BATHROOM. BED IN LOW POSITION, CALL LITE IN REACH, CALLS APPROP
--- NOTE | 2020-10-24 09:50 | NUR ---
PT TO SDS FROM ROOM 362. History, Chart, Medications and Allergies reviewed before start of procedure. Lungs clear T/O to Auscultation. Patient confirms NPO status and agrees with scheduled surgery. PT VOIDS [facility].
--- NOTE | 2020-10-24 10:07 | NUR ---
PT TO DAY SURG AT 0930
--- NOTE | 2020-10-24 14:09 | NUR ---
RECEIVED REPORT FROM DY AUTO TECHNICIAN MECHANIC GEMINI. PT DENIES PAIN. ON R/A 93% V/S STABLE, 159/72 P 70 R 16 DURA HUANG X5 OVER LAP ANALI SITE. GALL BLADDER OUT. PT TO COME SOON.
--- NOTE | 2020-10-24 14:11 | NUR ---
RECEIVED CALL FROM GEMINI. PT TO GO TO PCU RM 4. CONVERTED TO AFIB WITH RVR. WILL CALL REPORT
--- NOTE | 2020-10-24 14:40 | NUR ---
1400 PT WITH HEART RATE 177 DENIES PAIN OR PROBLEM DR LOYA TO PACU STATES PT NEEDS TO GO TO PCU AND HOSPITALIST NEEDS TO SEE PT GIRISH .EKG DONE IN PACU HEART RATE NOW IN 15O'S . PT CONTINUES TO "FEEL FINE" DRSG CDI X 5 AREAS OF DERMABOND. ASYMPTOMATIC JOKED WITH STAFF ON THE WAY TO PCU REPORT TO MARTHA SALAZAR RN SHE VERBALIZES UNDERSTANDING THAT HOSPITALIST NEEDS TO SEE PT GIRISH.
--- NOTE | 2020-10-24 14:46 | NUR ---
pt came to pcu post pacu for lap go, she's awake but a bit drowsy, b/p stable, she is in afib rvr, rate around 150bpm, she denies being symptomatic and has a hx of afib. Dr. Garcia being called at this time. call light in reach.
--- NOTE | 2020-10-24 17:29 | NUR ---
pt had a 20mg push of diltiazem then hung gtt at 15mls/hr, after about 15mins on gtt she converted to sr in the high 50's, gtt was stopped, pt states her heart isn't fluttering any more. Dr. Garcia was in to see her. mediated for pain, call light in reach.
--- NOTE | 2020-10-24 21:43 | NUR ---
ASSUMED CARE AT 1900, NO CONCERNS AT THAT TIME, SEE [facility] FULL ASSESSMENT.
--- NOTE | 2020-10-24 21:45 | NUR ---
CONVERTED TO A-FLUTTER 130 TO 150. WILL MONITOR, PATIENT ASYMPTOMATIC. WILL RESTART CARDIZEM IF NEEDED.
--- NOTE | 2020-10-24 22:12 | NUR ---
pateint converted back to sinus rhythm 60's
[2020-10-25 07:48] LABS: Alanine Aminotransfer (ALT/SGP 417 U/L (12-78); Albumin, Blood 2.8 g/dL (3.4-5.0); Albumin/Globulin Ratio 0.7 (0.8-1.8); Alk Phos 224 U/L (50-136); Anion Gap 8 mmol/L (6-16); Aspartate Aminotrans (AST/SGOT 434 U/L (12-37); Bilirubin, Total 0.3 mg/dL (0.1-1.0); Blood Urea Nitrogen 6 mg/dL (8-24); Bun/Creatinine Ratio 10.6 (12.0-20.0); CO2, Blood 24 mmol/L (21-32); Calcium, Blood 8.7 mg/dL (8.5-10.1); Chloride, Blood 108 mmol/L (98-108); Creatinine, Blood 0.57 mg/dL (0.40-1.00); Glomerular Filtration Rate >60 (60-); Glucose, Blood 146 mg/dL (70-99); Potassium, Blood 3.7 mmol/L (3.5-5.5); Sodium, Blood 140 mmol/L (136-145); Total Protein, Blood 6.8 g/dL (6.4-8.2)
--- NOTE | 2020-10-25 08:00 | NUR ---
pt sitting up on the side of the bed, she is hypertensive, a/ox3, pleasant and cooperative with care, follows commands well, reports pain in her abd, states she thinks it's surgical pain, lungs are clear t/o, resp even and unlabored, no cough noted, hrr, tele in place running sr per monitor, see strip, no edema noted, ppp+2, cap refill< 3sec, afebrile, ivx2 to right hand and right fa, both s.l. flushes well, abd flat soft tender, voids without diff, skin has surbgical stab wounds to abd, they look good, no s/s of infection, maew, up ad arleen in room, richard, call light in reach.
--- NOTE | 2020-10-25 12:49 | NUR ---
Ángela was given zofran for nausia and pain meds, she states she is feeling better now, but has converted to afib, has sustained for 15mins, Dr. Garcia notified, will put orders in. call light in reach.
--- NOTE | 2020-10-25 17:47 | NUR ---
pt complaining of pain this evening, she was given pain meds, she went into afib for about a half an hr, metoprolol was pushed, she converted back to sinus, recieved order to gave another 12.5mg of po metoprolol, this was given. no further changes this shift. call light in reach.
[2020-10-26 04:15] LABS: Alanine Aminotransfer (ALT/SGP 287 U/L (12-78); Albumin, Blood 2.8 g/dL (3.4-5.0); Albumin/Globulin Ratio 0.7 (0.8-1.8); Alk Phos 189 U/L (50-136); Anion Gap 6 mmol/L (6-16); Aspartate Aminotrans (AST/SGOT 173 U/L (12-37); Bilirubin, Total 0.4 mg/dL (0.1-1.0); Blood Urea Nitrogen 4 mg/dL (8-24); Bun/Creatinine Ratio 7.3 (12.0-20.0); CO2, Blood 26 mmol/L (21-32); Calcium, Blood 8.5 mg/dL (8.5-10.1); Chloride, Blood 108 mmol/L (98-108); Creatinine, Blood 0.55 mg/dL (0.40-1.00); Globulin, Blood 3.8 g/dL (2.2-4.0); Glomerular Filtration Rate >60 (60-); Glucose, Blood 116 mg/dL (70-99); Potassium, Blood 3.2 mmol/L (3.5-5.5); Sodium, Blood 140 mmol/L (136-145); Total Protein, Blood 6.6 g/dL (6.4-8.2)
--- NOTE | 2020-10-26 05:43 | NUR ---
SHIFT SUMMARY PT A&OX4, PT DID HAVE ONE EPISODE OF CONFUSION, CAME TO HER ROOM DOORWAY AND ASKED "HOW DO I GET TO THE OTHER ROOM?" PT WAS GUIDED BACK TO HER ROOM AND INFORMED EACH PT ONLY HAS ONE ROOM. PT QUICKLY REORIENTED W/ NO FURTHER ISSUES. SP02>92% ON RA. TELEMETRY READS SR. PT DID HAVE ELEVATED BP TOWARDS END OF SHIFT. CALL PLACED TO MD MESA. MD MESA W/ ORDERS FOR HYDRALAZINE IV PUSH. GIVEN W/ SUCCESSFUL LOWERING OF BP. PT UP TO BATHROOM TO VOID MULTIPLE TIMES. PT C/O OF RUQ AND BACK PAIN T/O NIGHT. ENCOURAGED REPOSITIONING AND MEDICATED PER EMAR. PT SLEPT OFF AND ON T/O SHIFT. UP IN CHAIR THIS MORNING. CALL LIGHTIN REACH. WILL GIVE REPORT TO ONCOMING NURSE.
--- NOTE | 2020-10-26 08:32 | NUR ---
ASSUMED CARE FROM NOC RN PT WAS AWAKE DURING REPORT AND VISITING WITH DR. HERNANDEZ. PT HAS SOME DULL PAIN WHILE RESTING AND SHARPER PAINS WITH MOVEMENT. PT WAS GIVEN AN ABD. BINDER TO HELP WITH THE ABD PAIN, PT REPORTS THAT IT IS HELPING. PT HAS GOTTEN UP TO THE BATHROOM, SBA AND COMPLETED ORAL CARE. VS STABLE, PT ON RA AND RESTING IN HER ROOM AT THIS TIME. MRI IS TO BE COMPLETED TODAY
--- NOTE | 2020-10-26 13:16 | NUR ---
MRI PT WAS OUT OF ROOM FOR MRI FROM APPROXIMATELY 1220 UNTIL 1300
--- NOTE | 2020-10-26 18:32 | NUR ---
SHIFT SUMMARY PT HAS BEEN MOVING BETWEEN THE BED AND THE CHAIR DURING THE DAY. PT HAS HAD SOME PAIN FROM THE SURGERY BUT IT HAS BEEN MANAGED PER EMAR AND WITH AN ABD. BINDER. PT HAD AN MRI TODAY AND DIET WAS ADVANCED TO LOW FAT. PT IS IN BED RESTING AT THIS TIME. VS STABLE, PT ON RA.
--- NOTE | 2020-10-27 05:14 | NUR ---
SHIFT SUMMARY NO ACUTE CHANGES THIS SHIFT. PT A&OX4. SP02>92% ON RA. TELEMETRY READS SB, HR 50'S. PT C/O OF 5/10 PAIN. MEDICATED PER EMAR X1 THIS SHIFT. INDEPENDENT IN ROOM. PT SLEPT MOST OF NIGHT, PT STATES SHE SLEPT BETTER THAN SHE HAS IN A LONG TIME. PT STATES SHE IS HOPEFUL TO GO HOME IN THE MORNING. CALL LIGHTIN REACH. WILL GIVE REPORT TO ONCOMING NURSE.
--- NOTE | 2020-10-27 10:13 | NUR ---
ASSUMED CARE FROM NOC RN PT WAS ASLEEP DURING MORNING REPORT, RESTING QUIETLY IN BED. PT WOKE FOR BREAKFAST, MORNING MEDS AND VS. PT'S BP WAS ELEVATED, MORNING MEDS HAVE BEEN ADMINISTERED AND A RECHECK WILL BE COMPLETED. PT RECEIVED A SHOWER WITH ASSISTANCE FROM THE HUMAN RESOURCES DIRECTOR. PT HAS AN ABD BINDER IN PLACE TO GIVE EXTRA SUPPORT. PT IS RESTING IN HER ROOM AT THIS TIME AWAITING DISCHARGE
[2020-10-27] MEDS ORDERED: ROXICODONE5 MG PO (11:28)
[2020-10-27] MEDS ORDERED: HYDR10 PO (11:28)
[2020-10-27 11:48] LABS: Alanine Aminotransfer (ALT/SGP 187 U/L (12-78); Albumin/Globulin Ratio 0.8 (0.8-1.8); Alk Phos 169 U/L (50-136); Anion Gap 6 mmol/L (6-16); Aspartate Aminotrans (AST/SGOT 60 U/L (12-37); Bilirubin, Total 0.4 mg/dL (0.1-1.0); Blood Urea Nitrogen 7 mg/dL (8-24); Bun/Creatinine Ratio 13.4 (12.0-20.0); CO2, Blood 26 mmol/L (21-32); Chloride, Blood 107 mmol/L (98-108); Creatinine, Blood 0.52 mg/dL (0.40-1.00); Glomerular Filtration Rate >60 (60-); Glucose, Blood 127 mg/dL (70-99); Potassium, Blood 3.4 mmol/L (3.5-5.5); Sodium, Blood 139 mmol/L (136-145)
--- NOTE | 2020-10-27 12:41 | NUR ---
DISCHARGE PT WAS APPROVED FOR DISCHARGE BY DR. HERNANDEZ AND DR. JAIN. PT LEFT VIA WHEELCHAIR ACCOMPANIED BY FORESTRY AND WILDLIFE MANAGER AT APPROXIMATELY 1235 ON 10/27/20. PT WAS GIVEN DISCHARGE INSTRUCTIONS REGARDING FOLLOW UP WITH DR. HERNANDEZ AND HER PCP. PT WAS GIVEN INSTRUCTIONS REGARDING NEW MEDICATIONS AND TO TAKE HER BP PRIOR TO USING THE PRN HYDRALIZINE. IV'S WERE REMOVED AND TELE WAS REMOVED PRIOR TO HER DISCHARGE. BP WAS IMPROVED BEFORE LEAVING AFTER USING HYDRALIZINE. PT WAS STABLE. PT LEFT WITH ABD BINDER IN PLACE TO HELP WITH COMFORT AND PAIN
== END 2020-10-27 12:33 | disposition home or self-care (01) | DRG 417 ==
LOC: ER 17:29 → ERHOLD 19:42 → MEDS 19:42 → DELPENDDIS 10-24 13:39 → ENPENDDIS 10-24 13:39 → MEDS 10-24 14:34 → PCU 10-24 14:41
PROVIDERS: Internal Medicine; Nurse Practitioner Acute Care; Physician Assistant; Surgery; ADMIT Family Medicine
PROC: BF502Z0 Other Imaging of Bile Ducts using Fluorescing Agent, Intraoperative (ICD-10-PCS; 2020-10-24)
PROC: 0FC94ZZ Extirpation of Matter from Common Bile Duct, Percutaneous Endoscopic Approach (ICD-10-PCS; 2020-10-24)
PROC: 0FT44ZZ Resection of Gallbladder, Percutaneous Endoscopic Approach (ICD-10-PCS; principal; 2020-10-24 10:00)
DX: K80.70 Calculus of gallbladder and bile duct without cholecystitis without obstruction (principal); K85.10 Biliary acute pancreatitis without necrosis or infection; I48.92 Unspecified atrial flutter; I48.0 Paroxysmal atrial fibrillation; Z86.73 Personal history of transient ischemic attack (TIA), and cerebral infarction without residual deficits; I10 Essential (primary) hypertension; Z79.01 Long term (current) use of anticoagulants; Z20.822 Contact with and (suspected) exposure to COVID-19
CPT/HCPCS: 0241U; 36415; 74181; 74300; 80053; 83690; 85025; 88304; 93005; 93010; 96361; 96374; 96375; 99285-25; A9270; C1726; C1729; G0480; J0295; J0360; J0690; J0780; J1100; J1170; J1610; J1650; J1885; J2060; J2250; J2405; J2550; J2704; J2710; J3010; J3480; J7040; J7120

== ENCOUNTER 2021-11-09 10:58 | Inpatient (IN) | payer OTHER, MEDICARE ==
[~2021-11-09] VITALS: Ht 162.6 cm; Wt 61.2 kg
[~2021-11-09 10:58] MED LIST changes: +Acetaminophen650 M1 PO; +HYDR10 PO; +Percocet 5-3251 EACH PO; +ROXICODONE5 MG PO
[2021-11-09 13:25] LABS: BASOPHILS ABSOLUTE AUTO 0.02 K/mm3 (0.00-0.23); BASOPHILS PERCENT AUTO 0 % (0-2); EOSINOPHILS ABSOLUTE AUTO 0.04 K/mm3 (0.00-0.68); EOSINOPHILS PERCENT AUTO 1 % (0-6); Hematocrit 43.3 % (33.0-51.0); Hemoglobin 14.9 g/dL (11.5-16.0); IMMATURE GRAN ABSOLUTE AUTO 0.01 K/mm3 (0.00-0.10); IMMATURE GRAN PERCENT AUTO 0 % (0-1); LYMPHOCYTES ABSOLUTE AUTO 2.11 K/mm3 (0.84-5.20); LYMPHOCYTES PERCENT AUTO 35 % (21-46); MONOCYTES ABSOLUTE AUTO 0.46 K/mm3 (0.16-1.47); MONOCYTES PERCENT AUTO 8 % (4-13); Mean Corpuscular HGB Conc 34.4 g/dL (31.5-36.5); Mean Corpuscular Volume 90 fL (80-100); Mean Platelet Volume 9.8 fL (9.1-12.4); NEUTROPHILS ABSOLUTE AUTO 3.32 K/mm3 (1.96-9.15); NEUTROPHILS PERCENT AUTO 56 % (41-73); Platelet Count 260 K/mm3 (150-400); RDW Standard Deviation 43.3 fL (35.1-46.3); Red Blood Cell Count 4.81 M/mm3 (3.80-5.20); White Blood Cell Count 5.96 K/mm3 (4.00-11.30)
[2021-11-09 13:37] LABS: Anion Gap 11 mmol/L (6-16); Blood Urea Nitrogen 19 mg/dL (8-24); Bun/Creatinine Ratio 30.6 (12.0-20.0); CO2, Blood 21 mmol/L (21-32); Calcium, Blood 9.6 mg/dL (8.5-10.1); Chloride, Blood 108 mmol/L (98-108); Creatinine, Blood 0.62 mg/dL (0.40-1.00); Glomerular Filtration Rate >60 (60-); Glucose, Blood 93 mg/dL (70-99); Potassium, Blood 3.5 mmol/L (3.5-5.5); Sodium, Blood 140 mmol/L (136-145)
[2021-11-09 13:39] LABS: International Normalized Ratio 1.09; Prothrombin Time Results 11.4 Sec (9.7-11.5)
--- NOTE | 2021-11-09 18:10 | NUR ---
PT SUMMARY: PT ARRIVED IN THE ROOM FROM ERD APPROX 1415, PT IS HERE FOR PSEUDOANEURYSM OF LEFT ARM. PT IS FULLY ALERT AND ORIENTED X4, INDEPENDENT IN THE ROOM. LIMITED ROM ON LEFT ARM DUE TO PAIN AND THE PSEUDOANEURYSM, PT FOR PROCEDURE IN AM BY DR KEANE. VITALS HRR SR AT 70'S, BP SYSTOLIC 150'S, SATS ABOVE 95% ON RA, AFEBRILE. PT WAS GIVEN 1M IV DILAUDID FOR PAIN, WAS GIVEN TWICE FOR THE SHIFT. POWERGLIDE PLACED ON CINDY FOR EASY IV ACCESS PT WAS A HARD STICK. NO BP/LAB DRAWS ON LEFT ARM FOR NOW PRE PROCEDURE, SIGN PLACED ON THE DOOR. PT IN BED RIGHT NOW EATING DINNER WITH NO ISSUES. PT ORIENTED TO THE ROOM, USES CALL LIGHTS APPROPRIATELY. WILL REPORT TO ONCOMING SHIFT.
--- NOTE | 2021-11-09 21:24 | NUR ---
CARE ASSUMPTION: RECEIVED REPORT FROM SREE BATES RN. PATIENT INDEPENDENT IN ROOM, COMPLAIN OF ARM PAIN. RADIAL ARTERY BULGED AND PUSATING. IV FROM [facility] IN RIGHT WRIST FLUSHES WELL. ALSO HAS CINDY POWERGLIDE PLACED IN PCU. PATIENT REQUESTED PAIN MEDICATION.
--- NOTE | 2021-11-10 00:46 | NUR ---
O2 DESATURATION: PATIENT DESATS TO MID 60S WHEN SLEEPING. DENIES HX OF SLEEP APNEA OR SNORING, STATES SHE WAKES RESTED IN THE MORNING. 2L NC APPLIED TO SUPPORT O2 SAT AND LIMIT DISTURBANCE TO PATIENT AT REST.
[2021-11-10 05:16] LABS: BASOPHILS ABSOLUTE AUTO 0.02 K/mm3 (0.00-0.23); BASOPHILS PERCENT AUTO 0 % (0-2); EOSINOPHILS ABSOLUTE AUTO 0.06 K/mm3 (0.00-0.68); EOSINOPHILS PERCENT AUTO 1 % (0-6); Hematocrit 43.9 % (33.0-51.0); IMMATURE GRAN ABSOLUTE AUTO 0.01 K/mm3 (0.00-0.10); IMMATURE GRAN PERCENT AUTO 0 % (0-1); LYMPHOCYTES ABSOLUTE AUTO 1.03 K/mm3 (0.84-5.20); LYMPHOCYTES PERCENT AUTO 19 % (21-46); MONOCYTES ABSOLUTE AUTO 0.45 K/mm3 (0.16-1.47); MONOCYTES PERCENT AUTO 8 % (4-13); Mean Corpuscular HGB Conc 31.9 g/dL (31.5-36.5); Mean Corpuscular Volume 94 fL (80-100); Mean Platelet Volume 9.7 fL (9.1-12.4); NEUTROPHILS ABSOLUTE AUTO 3.84 K/mm3 (1.96-9.15); NEUTROPHILS PERCENT AUTO 71 % (41-73); Platelet Count 232 K/mm3 (150-400); RDW Coefficient Variation 13.3 % (11.7-14.2); RDW Standard Deviation 46.2 fL (35.1-46.3); Red Blood Cell Count 4.66 M/mm3 (3.80-5.20); White Blood Cell Count 5.41 K/mm3 (4.00-11.30)
--- NOTE | 2021-11-10 05:35 | NUR ---
SHIFT SUMMARY: PATIENT'S LEFT ARM PAINFUL FROM RADIAL ABSCESS TO ELBOW T/O SHIFT, MEDICATED PER EMAR. PATIENT COMPLAINED OF NAUSEA IN EARLY AM - MEDICATED PER EMAR WITH GOOD RESULTS. PATIENT AMBULATES IN ROOM TO TOILET AND HAS NO COMPLAINTS OF DIZZINESS OR CHEST PAIN. PATIENT DESATS TO 60-70S WHILE SLEEPING SO USING 2L NC SUPPLEMENTAL O2. PATIENT DOES NOT USE O2 OR CPAP/BIPAP AT HOME. WILL CONTINUE TO MONITOR AND REPORT TO ONCOMING RN.
[2021-11-10 06:01] LABS: Alanine Aminotransfer (ALT/SGP 220 U/L (12-78); Albumin, Blood 3.4 g/dL (3.4-5.0); Albumin/Globulin Ratio 0.8 (0.8-1.8); Alk Phos 185 U/L (50-136); Anion Gap 3 mmol/L (6-16); Aspartate Aminotrans (AST/SGOT 249 U/L (12-37); Bilirubin, Total 0.5 mg/dL (0.1-1.0); Blood Urea Nitrogen 14 mg/dL (8-24); Bun/Creatinine Ratio 21.2 (12.0-20.0); CO2, Blood 29 mmol/L (21-32); Calcium, Blood 9.1 mg/dL (8.5-10.1); Chloride, Blood 107 mmol/L (98-108); Creatinine, Blood 0.66 mg/dL (0.40-1.00); Glomerular Filtration Rate >60 (60-); Glucose, Blood 126 mg/dL (70-99); Potassium, Blood 4.7 mmol/L (3.5-5.5); Sodium, Blood 139 mmol/L (136-145); Total Protein, Blood 7.4 g/dL (6.4-8.2)
--- NOTE | 2021-11-10 09:18 | NUR ---
ASSUMED CARE OF PATIENT AT APPROX 0700. PT ALERT, ORIENTED x4; NANWALEK; ANXIOUS IN REGARDS TO PROCEDURE LATER TODAY. PT RERORTS PAIN TO LEFT WRIST/RADIAL AND HEADACHE THIS AM, MEDCIATED x1 WITH DILAUDID. PT DENIES CHEST PAIN/PRESSURE, SOB, NAUSEA AND DIZZINESS AT THIS TIME. PT REST ING IN BE UP IND IN ROOM. LEFT RADIAL SITE MASS NOTED, PULSATING, PAINFUL AND TENDER TO TOUCH, BUISING NOTED UP PT LEFT FOREARM. VSS. NO OTHER ACUTE CHANGES NOTED. WILL CONTINUE TO MONITOR.
--- NOTE | 2021-11-10 15:03 | NUR ---
PT BACK FROM SIGNAL WIRER, RIGHT GROIN SITE WITH ANGIOSEAL IN PLACE; NO BRUISING BLEEDING OR HEMATOMA NOTED. PT LAYING FLAT WILL RECOVER PER POLICY. PT REPROTS INCREASED SEARING PAIN TO LEFT WRIST. MEDICATED PER EMAR. WILL CONTINUE TO MONITOR.
--- NOTE | 2021-11-10 15:26 | NUR ---
PT ALRAMING, SPO2 AT 49% ON RA, PT FACE BLUE, FACED SCRUNCHED, APPEARS TO HOLDING BREATH. WHEN RN CALLED HER NAME PT TOOK A BREATH, THIS RN PLACED 2L O2 VIA NC, SPO2 UP TO 100%, QUICK RECOVERY. WHEN ASKED PT IF SHE WAS HOLDING HER BREATH PT DENIES. WILL CONTINUE TO MONITOR.
--- NOTE | 2021-11-10 19:15 | NUR ---
SHIFT SUMMARY RIGHT GROIN SITE FULLY RECOVERED PER POLICY. SLIGHT SWELLING TO LEFT WRIST; ARM IN SOFT SLING. PT UP WITH SBA TO BATHROOM. NO FURTHER S/SX OF DISTRESS NOTED T/O SHIFT. MEDCIATED FOR PAIN PER EMAR. TITRATED O2 DOWN TO 1L O2. OTHER VSS. NO OTHER ACUTE CHANGES NOTED. REPORT GIVEN TO ONCOMING RN.
[2021-11-11 04:36] LABS: BASOPHILS ABSOLUTE AUTO 0.03 K/mm3 (0.00-0.23); BASOPHILS PERCENT AUTO 1 % (0-2); EOSINOPHILS ABSOLUTE AUTO 0.16 K/mm3 (0.00-0.68); EOSINOPHILS PERCENT AUTO 3 % (0-6); IMMATURE GRAN ABSOLUTE AUTO 0.02 K/mm3 (0.00-0.10); IMMATURE GRAN PERCENT AUTO 0 % (0-1); LYMPHOCYTES ABSOLUTE AUTO 1.72 K/mm3 (0.84-5.20); LYMPHOCYTES PERCENT AUTO 32 % (21-46); MONOCYTES ABSOLUTE AUTO 0.56 K/mm3 (0.16-1.47); MONOCYTES PERCENT AUTO 11 % (4-13); Mean Corpuscular HGB 30.5 pg (26.0-34.0); Mean Corpuscular HGB Conc 32.5 g/dL (31.5-36.5); Mean Corpuscular Volume 94 fL (80-100); Mean Platelet Volume 9.9 fL (9.1-12.4); NEUTROPHILS ABSOLUTE AUTO 2.86 K/mm3 (1.96-9.15); NEUTROPHILS PERCENT AUTO 53 % (41-73); Platelet Count 206 K/mm3 (150-400); RDW Coefficient Variation 13.5 % (11.7-14.2); RDW Standard Deviation 46.9 fL (35.1-46.3); Red Blood Cell Count 4.26 M/mm3 (3.80-5.20); White Blood Cell Count 5.35 K/mm3 (4.00-11.30)
[2021-11-11 04:55] LABS: Anion Gap 5 mmol/L (6-16); Blood Urea Nitrogen 11 mg/dL (8-24); Bun/Creatinine Ratio 19.4 (12.0-20.0); CO2, Blood 27 mmol/L (21-32); Calcium, Blood 8.9 mg/dL (8.5-10.1); Chloride, Blood 108 mmol/L (98-108); Creatinine, Blood 0.57 mg/dL (0.40-1.00); Glomerular Filtration Rate >60 (60-); Glucose, Blood 110 mg/dL (70-99); Sodium, Blood 140 mmol/L (136-145)
--- NOTE | 2021-11-11 05:31 | NUR ---
SEALER AIRCRAFT SUMMARY PT IS AXO X4 AND COMMUNICATES APPROPRIATELY. PT REPORTING SEVERE PAIN IN LUE MOST OF THE SHIFT. VSS AND AFEBRILE. O2 SATS >90% ON RM AIR. R GROIN SHOWS NO S/S OF BLEEDING OR HEMATOMA THIS SHIFT. WILL REPORT TO ONCOMING RN.
--- NOTE | 2021-11-11 09:29 | NUR ---
ASSUMED CARE OF PATIENT AT APPROX 0700. PT APPEARS TO BE SLEEPING. WAKES EASILY, ALERT, ORIENTEDx4; CALM AND COOPERATIVE WITH CARE. PT IND IN ROOM THIS AM. PT REPORTS CONTINUED PAIN TO LEFT WRIST/ RADIAL SITE AND NEWLY REPORTING THROBBING TO RIGHT GROIN; MEDCIATED PER EMAR. RIGHT RADIAL SITE C/D/I; SLIGHT BRUISING NOTED; NO HEMATOMA OR BLEEDING NOTED. LEFT WRIST MASS NOT PULSATING ON PALPATION THIS AM, SURROUND AREA TRACE SWELLING NOTED. PT DENIES CHEST PAIN/PRESSURE, SOB, NASUEA AND DIZZINESS THIS AM. ELEVATED BP NOTED, OTHER VSS. NO OTHER ACUTE CHANGES NOTED. WILL CONTINUE TO [facility].
[2021-11-11] MEDS ORDERED: AMLO5 PO (15:19)
--- NOTE | 2021-11-11 17:39 | NUR ---
DISCHARGE SUMMARY DR KEANE AT BEDSIDE THIS AFTERNOON CHECKING LEFT RADIAL AND RIGHT GROIN SITE; CLEARED PATIEINT FOR DISCHARGE HOME AND RESTART XAREL[facility] TOMORROW 11/12/21. NO CHANGES T/O SHIFT. PT REPORTS PAIN TO LEFT WRIST AND RIGHT GROIN; MEDICATED PER EMAR. NO OTHER ACUTE CHANGES NOTED. EDUCDATED PT ON DISCHARGE INSTRUCTIONS, FOLLOW UP APPOINTMENT AND PRESCRIPTIONS. ELEVATED BP NOTED, NOTIIFED DR MCCABE; NEW ORDER FOR ONE TIME DOSE OF [place]ASC. OTHER VSS. [facility] PER [facility] REQUEST. EDUCATED PT ON FEMORAL ARTERY ACCESS AND ACTIVITY RESTRICTIONS. PT LEFT VIA WHEELCHAIR AT 1700.
== END 2021-11-11 17:00 | disposition home or self-care (01) | DRG 254 ==
LOC: ER 10:58 → PCU 13:05
PROVIDERS: Emergency Medicine; ADMIT Internal Medicine
PROC: 037C3ZZ Dilation of Left Radial Artery, Percutaneous Approach (ICD-10-PCS; principal; 2021-11-11)
DX: I72.1 Aneurysm of artery of upper extremity (principal); Z53.29 Procedure and treatment not carried out because of patient's decision for other reasons; I48.91 Unspecified atrial fibrillation; F10.10 Alcohol abuse, uncomplicated; G89.29 Other chronic pain; M54.9 Dorsalgia, unspecified; M79.7 Fibromyalgia; F41.8 Other specified anxiety disorders; Z86.73 Personal history of transient ischemic attack (TIA), and cerebral infarction without residual deficits; Z87.442 Personal history of urinary calculi; Z90.710 Acquired absence of both cervix and uterus; Z79.01 Long term (current) use of anticoagulants; Z79.899 Other long term (current) drug therapy
CPT/HCPCS: 76937; 80048; 80053; 85025; 85610; 85730; 93931; 94762; 96374; 96375; 99152; 99153; 99285-25; A9270; C1725; C1751; C1760; C1769; C1887; C1894; J1170; J1644; J2250; J2270; J2405; J2550; J3010; J3360; J7030; Q9967

== ENCOUNTER 2022-07-12 09:58 | Inpatient (IN) | payer OTHER ==
[~2022-07-12] VITALS: Ht 167.6 cm; Wt 97.5 kg
[~2022-07-12 09:58] MED LIST changes: +AMLO10 PO
[2022-07-12 10:32] LABS: BASOPHILS ABSOLUTE AUTO 0.04 K/mm3 (0.00-0.23); BASOPHILS PERCENT AUTO 0 % (0-2); EOSINOPHILS ABSOLUTE AUTO 0.12 K/mm3 (0.00-0.68); EOSINOPHILS PERCENT AUTO 1 % (0-6); Hematocrit 45.2 % (33.0-51.0); Hemoglobin 14.5 g/dL (11.5-16.0); IMMATURE GRAN ABSOLUTE AUTO 0.02 K/mm3 (0.00-0.10); IMMATURE GRAN PERCENT AUTO 0 % (0-1); LYMPHOCYTES ABSOLUTE AUTO 1.94 K/mm3 (0.84-5.20); LYMPHOCYTES PERCENT AUTO 21 % (21-46); MONOCYTES ABSOLUTE AUTO 0.56 K/mm3 (0.16-1.47); MONOCYTES PERCENT AUTO 6 % (4-13); Mean Corpuscular HGB 31.6 pg (26.0-34.0); Mean Corpuscular HGB Conc 32.1 g/dL (31.5-36.5); Mean Corpuscular Volume 99 fL (80-100); Mean Platelet Volume 9.7 fL (9.1-12.4); NEUTROPHILS PERCENT AUTO 71 % (41-73); Platelet Count 239 K/mm3 (150-400); RDW Coefficient Variation 12.8 % (11.7-14.2); Red Blood Cell Count 4.59 M/mm3 (3.80-5.20); White Blood Cell Count 9.38 K/mm3 (4.00-11.30)
[2022-07-12 10:52] LABS: Alanine Aminotransfer (ALT/SGP 24 U/L (12-78); Albumin, Blood 3.7 g/dL (3.4-5.0); Alk Phos 91 U/L (50-136); Anion Gap 14 mmol/L (6-16); Aspartate Aminotrans (AST/SGOT 29 U/L (12-37); Bilirubin, Total 0.3 mg/dL (0.1-1.0); Blood Urea Nitrogen 9 mg/dL (8-24); Bun/Creatinine Ratio 15.2 (12.0-20.0); CO2, Blood 19 mmol/L (21-32); Calcium, Blood 9.1 mg/dL (8.5-10.1); Chloride, Blood 105 mmol/L (98-108); Creatinine, Blood 0.59 mg/dL (0.40-1.00); Ethanol (Alcohol), Blood, Med <3 mg/dL; Globulin, Blood 3.7 g/dL (2.2-4.0); Glomerular Filtration Rate 101 (60-); Glucose, Blood 159 mg/dL (70-99); Potassium, Blood 3.6 mmol/L (3.5-5.5); Sodium, Blood 138 mmol/L (136-145); Total Protein, Blood 7.4 g/dL (6.4-8.2)
[2022-07-12 11:31] LABS: Source, Urine Clean Catch
[2022-07-12 11:42] LABS: Bilirubin, Urine Neg (Neg); Blood, Urine 2+ (Neg); Glucose Qualitative, Urine Neg (Neg); Ketones, Urine 2+ (Neg); Leukocyte Esterase, Urine Neg (Neg); Nitrite, Urine Neg (Neg); Protein, Urine 2+ (Neg); Specific Gravity, Urine 1.015 (1.003-1.022); Urobilinogen, Urine NORM (Normal)
[2022-07-12 11:52] LABS: Appearance, Urine Clear (Clear); Bacteria Not Seen /hpf; Color, Urine Yellow (P-Yellow); Red Blood Cells, Urine 0-2 /hpf (0-2); Squamous Epithelial Cells Not Seen /hpf (Few); White Blood Cells, Urine Not Seen /hpf (0-5)
[2022-07-12 11:56] LABS: U Amphetamine Screen Not Detected; U Barbituate Screen Not Detected; U Benzodiazapine Screen Not Detected; U Buprenorphine Screen Not Detected; U Cannabinoids Screen Not Detected; U Cocaine Screen Not Detected; U Methadone Screen Not Detected; U Methamphetamine Screen Not Detected; U Opiates Screen Not Detected; U Oxycodone Screen Not Detected; U Phencyclidine Screen Not Detected; U Propoxyphene Screen Not Detected
[2022-07-12 15:17] LABS: Base Excess Venous -3.5 mmol/L; Bicarbonate Venous 21.9 mmol/L (24.0-30.0); PCO2 Venous 36.7 mmHg (38-42); PO2 Venous 82.5 mmHg (38-42); pH Blood Venous 7.38 (7.34-7.37)
[2022-07-12 15:28] LABS: Magnesium, Blood 2.1 mg/dL (1.6-2.4); Prolactin 33.1 ng/mL (2.74-19.64)
[2022-07-12 15:29] LABS: Thyroid Stimulating Hormone 0.779 uIU/mL (0.360-4.800)
--- NOTE | 2022-07-12 17:51 | NUR ---
SHIFT SUMMARY PT ARRIVED TO UNIT FROM ED. PT AWAKE AND ALERT, BUT SLOW TO RESPOND. PT COMPLAINING OF HEADACHE AND NAUSEA. PT MEDICATED PER EMAR. BP ELEVATED. HR NSR IN THE 90'S. PT CONVERTED FROM AFIB TO NSR BEFORE ARRIVAL TO UNIT. PT ABLE TO STAND AND TRANSFER FROM [facility] WITH MINIMAL ASSISTANCE. BED ALARM ON FOR SAFETY. MONITORING FOR ETOH WD WITH CIWA.
--- NOTE | 2022-07-13 | NUR ---
CARE ASSUMPTION: PATIENT'S SBP CONSISTENTLY >160 - MD NOTIFIED AND ORDERS TO MAINTAIN CIWA PROTOCOL. CIWAS 12-20. MEDICATED PER EMAR. PATIENT COMPLAINS OF NECK PAIN /. PATIENT HAS EXTENSIVE BRUISING BUT DOESN'T REMEMBER FALLING. PATIENT IS LACTOSE INTOLERANT. BED ALARM SET AND CALL LIGHT IN REACH.
[2022-07-13 06:40] LABS: Hemoglobin 12.5 g/dL (11.5-16.0); Mean Corpuscular HGB 32.4 pg (26.0-34.0); Mean Corpuscular HGB Conc 33.8 g/dL (31.5-36.5); Mean Corpuscular Volume 96 fL (80-100); Mean Platelet Volume 9.9 fL (9.1-12.4); Platelet Count 211 K/mm3 (150-400); RDW Coefficient Variation 12.9 % (11.7-14.2); RDW Standard Deviation 45.9 fL (35.1-46.3); Red Blood Cell Count 3.86 M/mm3 (3.80-5.20); White Blood Cell Count 7.07 K/mm3 (4.00-11.30)
--- NOTE | 2022-07-13 06:45 | NUR ---
SHIFT SUMMARY: PATIENT CIWA 9-20 T/O SHIFT - MEDICATED PER EMAR. PATIENT SLEPT SOME AND TEARFUL WHEN AWAKE. COMPLAINS OF 9/10 PAIN IN NECK AND HEAD NOT RESOLVED WITH PRESCRIBED PAIN RELIEF MEDICATIONS. RESIDENT ORDERS TO FOLLOW [facility] PROTOCOL. PATIENT IS SLOW TO RESPOND TO QUESTIONS AND STATES SHE IS CADDO. NS INFUSING 100 MLS/HR. BED LOW WITH CALL LIGHT IN REACH AND ALARM SET. WILL REPORT TO DAY RN.
[2022-07-13 07:03] LABS: Bilirubin, Total 0.5 mg/dL (0.1-1.0); Bun/Creatinine Ratio 11.7 (12.0-20.0); Calcium, Blood 8.1 mg/dL (8.5-10.1); Creatinine, Blood 0.6 mg/dL (0.40-1.00); Globulin, Blood 3.1 g/dL (2.2-4.0); Magnesium, Blood 2.3 mg/dL (1.6-2.4); Potassium, Blood 3.4 mmol/L (3.5-5.5); Prolactin 21.7 ng/mL (2.74-19.64); Total Protein, Blood 6.1 g/dL (6.4-8.2)
--- NOTE | 2022-07-13 18:15 | NUR ---
PT SUMMARY: PT A&OX3, ON CIWA PROTOCOL CIWA HAS BEEN 5-9 FOR THE SHIFT JUST MEDICATED WITH LIBRIUM X1 THIS MORNING ALONG WITH PAIN MEDS AND WAS EFFECTIVE, PT REPORTS MILD HEAD ACHE AND NECK PAIN. VITALS HRR SR 70'S, SBP ELEVATED AT 160'S PROVIDER CALLED AND MADE AWARE PT WAS STARTED ON AMLODIPINE PO 10MG, SATS ABOVE 94% ON RA, AFEBRILE. PT CALLS APPROPRIATELY GETS UP TO USE BEDSIDE COMMODE SBA. ADEQUATE FOOD AND FLUID INTAKE, PT NO SEIZURE EPISODES REMAINS ON SEIZURE PRECAUTIONS, BED ALARM ON FOR SAFETY. TRANSITIONED TO MEDICAL WITH TELE. NO OTHER ISSUES REPORTED FOR THE SHIFT ABLE TO MAKE NEEDS KNOWN WILL REPORT TO ONCOMING SHIFT
--- NOTE | 2022-07-13 23:57 | NUR ---
CARE ASSUMPTION: PATIENT SITTING ON SIDE OF BED AT START OF SHIFT. CIWA 2 - REPORTS MILD HEADACHE THAT IMPROVES WITH MEDICATION. SBP >170 AND IMPROVED TO 150S WITH 2100 METOPROLOL. AFEBRILE. SBA TO BSC. BED LOW WITH ALARM SET. USES CALL LIGHT APPROPRIATELY. MED TELE STATUS AT THIS TIME.
--- NOTE | 2022-07-14 04:09 | NUR ---
SHIFT SUMMARY: PATIENT A&O X4, VSS ON RA, SBP 150S THIS AM. CIWAS <4. SLEPT MOST OF THE NIGHT. PLEASANT AND COOPERATIVE WITH CARE. USES CALL LIGHT APPROPRIATELY. SBA TO BSC. NO ADVERSE EVENTS THIS SHIFT. WILL CONTINUE TO MONITOR UNTIL REPORT TO DAY RN.
[2022-07-14] MEDS ORDERED: METO25ER PO (11:50)
--- NOTE | 2022-07-14 13:59 | NUR ---
PT DISCHARGE TO HOME WITH DISCHARGE ORDERS. DISCHARGE INSTRUCTIONS AND NEW MEDICATIONS DISCLOSED WITH THE PT, TALKED TO THE INTERNAL WHOLESALER ABOUT SOCIAL SERVICE REGARDING ALCOHOL CESSATION THERAPY RESOURCE AND WAS ABLE TO PROVIDE WRITTEN INFORMATION ABOUT RESOURCES. VITALS HAS BEEN STABLE PRIOR TO DISCHARGE HRR SR 50-60'S, BP SYSTOLIC 130'S, SATS ABOVE 95% ON RA, AFEBRILE. PRESCRIPTION FAXED TO [facility], WRITTEN PRESCRIPTION SENT WITH THE PT FOR LIBRIUM. NO OTHER ISSUES ENCOUNTERED PRIOR TO DISCHARGE, ALL BELONGINGS SENT WITH THE PT, ABLE TO PROVIDE TRANSPORTATION FOR THE PT
== END 2022-07-14 12:30 | disposition home or self-care (01) | DRG 897 ==
LOC: ER 09:58 → PCU 14:44
PROVIDERS: Nurse Practitioner Acute Care; Student in an Organized Health Care Education/Training Program; ADMIT Internal Medicine
DX: F10.239 Alcohol dependence with withdrawal, unspecified (principal); G40.509 Epileptic seizures related to external causes, not intractable, without status epilepticus; F11.20 Opioid dependence, uncomplicated; E87.6 Hypokalemia; Z86.73 Personal history of transient ischemic attack (TIA), and cerebral infarction without residual deficits; I48.0 Paroxysmal atrial fibrillation; Z79.01 Long term (current) use of anticoagulants; Z91.011 Allergy to milk products; F32.A Depression, unspecified; F41.9 Anxiety disorder, unspecified; E78.5 Hyperlipidemia, unspecified; Z90.710 Acquired absence of both cervix and uterus; Z98.890 Other specified postprocedural states; Z79.899 Other long term (current) drug therapy; G89.29 Other chronic pain; M79.7 Fibromyalgia
CPT/HCPCS: 36415; 70450; 72125; 80053; 81001; 82803; 83605; 83735; 84146; 84443; 85025; 85027; 93005; 93010; 94762; A9270; G0480; J1200; J1790; J2060; J2405; J2765; J3010; J3360; J3475; J7030

== ENCOUNTER 2023-10-11 12:25 | Day surgery (SDC) | payer OTHER ==
[~2023-10-11] VITALS: Ht 165.1 cm; Wt 108.0 kg
[2023-10-11] MEDS ORDERED: ESCI10 PO (12:46)
[2023-10-11] MEDS ORDERED: LOSA25 PO (12:47)
--- NOTE | 2023-10-11 12:54 | NUR ---
10/11/23 1254 Debora Orozco AT [address] [place] [id number]
[2023-10-11 13:58] VITALS: BP 160/84
== END 2023-10-11 14:12 | disposition home or self-care (01) ==
LOC: ORSCSDS 12:25
PROVIDERS: Student in an Organized Health Care Education/Training Program
PROC: 08RK3JZ Replacement of Left Lens with Synthetic Substitute, Percutaneous Approach (ICD-10-PCS; principal; 2023-10-11 13:45)
DX: H25.12 Age-related nuclear cataract, left eye (principal); H25.13 Age-related nuclear cataract, bilateral; F41.9 Anxiety disorder, unspecified; F32.A Depression, unspecified; I48.91 Unspecified atrial fibrillation; Z86.73 Personal history of transient ischemic attack (TIA), and cerebral infarction without residual deficits; I10 Essential (primary) hypertension; Z79.01 Long term (current) use of anticoagulants; Z79.899 Other long term (current) drug therapy
CPT/HCPCS: J2250; J3010; J7040; V2632

== ENCOUNTER 2023-10-18 09:36 | Day surgery (SDC) | payer OTHER ==
[~2023-10-18] VITALS: Ht 165.1 cm; Wt 106.9 kg
[~2023-10-18 09:36] MED LIST changes: +Balanced Salt Epinephrine Irrigation Solution 500 mL IR SCH; +ESCI10 PO; +LOSA25 PO; +Lidocaine HCl/Pf 1% 5 ML VIAL XX SCH; +Moxifloxacin HCL 0.5 MG/0.1 ML 0.4MLSYR RIGHTEYE SCH; +NS 500 ML IV ONE; +PHENYLEPHRINE\\TROPICAMIDE\\TETRACAINE OPHTHALMIC DILATING SOLN RIGHTEYE PRN; +Povidone-Iodine 450 DROP/30 ML Solution ONE; +Povidone-Iodine 450 DROP/30 ML Solution RIGHTEYE SCH
[2023-10-18] MEDS ORDERED: NS 500 ML IV ONE ×2 (10:08)
--- NOTE | 2023-10-18 10:08 | NUR ---
10/18/23 1008 Suzette Gross CALL LIGHT WITHIN REACH. TETRACAINE IN RIGHT EYE AT 1005 AND PLEDGETT IN AT 1006
[2023-10-18] MEDS ORDERED: Midazolam HCl 1MG / ML 2ML Vial ONE (10:37)
[2023-10-18] MEDS ORDERED: FentaNYL Citrate 50 MCG/ML 2 ML Injection ONE (10:37)
[2023-10-18] MEDS ORDERED: Tetracaine HCl 0.5% Opth Soln 15 ml XX ONE (10:55)
[2023-10-18] MEDS ORDERED: Ondansetron HCl 2 MG / ML 2ML Vial ONE (10:57)
[2023-10-18 11:11] VITALS: BP 147/77
== END 2023-10-18 11:15 | disposition home or self-care (01) ==
LOC: ORSCSDS 09:36
PROVIDERS: Student in an Organized Health Care Education/Training Program
PROC: 08RJ3JZ Replacement of Right Lens with Synthetic Substitute, Percutaneous Approach (ICD-10-PCS; principal; 2023-10-18 11:00)
DX: H25.11 Age-related nuclear cataract, right eye (principal); Z96.1 Presence of intraocular lens; I48.91 Unspecified atrial fibrillation; Z79.01 Long term (current) use of anticoagulants; Z79.899 Other long term (current) drug therapy; E66.9 Obesity, unspecified; Z68.39 Body mass index [BMI] 39.0-39.9, adult
CPT/HCPCS: J2250; J2405; J3010; J7040; V2632

== ENCOUNTER 2025-06-25 16:13 | Emergency (ER) | payer OTHER ==
[~2025-06-25] VITALS: Ht 165.1 cm; Wt 74.8 kg
[~2025-06-25 16:13] MED LIST changes: -Balanced Salt Epinephrine Irrigation Solution 500 mL IR SCH; -Lidocaine HCl/Pf 1% 5 ML VIAL XX SCH; -Moxifloxacin HCL 0.5 MG/0.1 ML 0.4MLSYR RIGHTEYE SCH; -NS 500 ML IV ONE; -PHENYLEPHRINE\\TROPICAMIDE\\TETRACAINE OPHTHALMIC DILATING SOLN RIGHTEYE PRN; -Povidone-Iodine 450 DROP/30 ML Solution ONE; -Povidone-Iodine 450 DROP/30 ML Solution RIGHTEYE SCH
[2025-06-25 17:11] LABS: BASOPHILS ABSOLUTE AUTO 0.02 K/mm3 (0.00-0.23); BASOPHILS PERCENT AUTO 0 % (0-2); EOSINOPHILS ABSOLUTE AUTO 0.05 K/mm3 (0.00-0.68); EOSINOPHILS PERCENT AUTO 1 % (0-6); Hematocrit 39.8 % (33.0-51.0); Hemoglobin 13.5 g/dL (11.5-16.0); IMMATURE GRAN ABSOLUTE AUTO 0.02 K/mm3 (0.00-0.10); IMMATURE GRAN PERCENT AUTO 0 % (0-1); LYMPHOCYTES ABSOLUTE AUTO 1.74 K/mm3 (0.84-5.20); LYMPHOCYTES PERCENT AUTO 24 % (21-46); MONOCYTES ABSOLUTE AUTO 0.49 K/mm3 (0.16-1.47); MONOCYTES PERCENT AUTO 7 % (4-13); Mean Corpuscular HGB Conc 33.9 g/dL (31.5-36.5); Mean Corpuscular Volume 86 fL (80-100); NEUTROPHILS ABSOLUTE AUTO 4.83 K/mm3 (1.96-9.15); NEUTROPHILS PERCENT AUTO 68 % (41-73); NRBC ABSOLUTE 0.00 K/mm3 (0.00-0.02); NRBC Auto 0.0 /100 WBC (0.0-0.2); Platelet Count 235 K/mm3 (150-400); RDW Coefficient Variation 13.6 % (11.7-14.2); RDW Standard Deviation 42.6 fL (35.1-46.3)
[2025-06-25 17:27] LABS: Prothrombin Time Results 12.3 Sec (9.7-11.5)
[2025-06-25 17:43] LABS: Alanine Aminotransfer (ALT/SGP 20.0 U/L (12-78); Albumin, Blood 3.6 g/dL (3.4-5.0); Albumin/Globulin Ratio 1.1 (0.8-1.8); Anion Gap 10.0 mmol/L (3-11); Aspartate Aminotrans (AST/SGOT 19.0 U/L (12-37); Bilirubin, Total 0.5 mg/dL (0.1-1.0); Blood Urea Nitrogen 16.0 mg/dL (8-24); CO2, Blood 22.0 mmol/L (21-32); Calcium, Blood 9.5 mg/dL (8.5-10.1); Chloride, Blood 106.0 mmol/L (98-108); Creatinine, Blood 0.85 mg/dL (0.40-1.00); Globulin, Blood 3.2 g/dL (2.2-4.0); Glucose, Blood 76.0 mg/dL (70-99); Potassium, Blood 3.2 mmol/L (3.5-5.5); Sodium, Blood 135.0 mmol/L (136-145); Total Protein, Blood 6.8 g/dL (6.4-8.2)
[2025-06-25 18:45] VITALS: BP 148/85
== END 2025-06-25 21:40 | disposition home or self-care (01) ==
LOC: ER 16:13
PROVIDERS: Emergency Medicine
DX: R53.1 Weakness (principal); I48.91 Unspecified atrial fibrillation; Z79.01 Long term (current) use of anticoagulants; Z79.899 Other long term (current) drug therapy
CPT/HCPCS: 70450; 70496; 70498; 80053; 82947; 84484; 85025; 85610; 85730; 93005; 93010; 99285-25; Q9967